=== PATIENT | male | born 1950 | race Caucasian/White ===

== ENCOUNTER 2021-12-24 14:31 | Outpatient (REF) | payer OTHER, SELFPAY ==
--- NOTE | ~2021-12-24 | CT_ITS ---
EXAMINATION: CT CHEST SCREENING CLINICAL INFORMATION: Current smoker. 60 pack year history. COMPARISON: Previous chest CT June 2018 TECHNIQUE: Multidetector volumetric CT imaging of the chest is performed without contrast using low dose technique. Additional 2D coronal and sagittal reformatted images and axial 3D maximum intensity projection (MIP) images are generated on the CT workstation. This CT examination was performed using dose optimization techniques as appropriate, variously including the following: *Automated exposure control *Adjustment of mA and/or kV according to patient size (this includes techniques or standardized protocols for targeted exams where dose is matched to indication/reason for exam; i.e. extremities or head) *Use of iterative reconstruction technique DLP: 66 mGy-cm FINDINGS: LUNGS: There is evidence of mild emphysema. There is chronic scarring and focal bronchiectasis in the left upper lobe that is stable. There are small calcified and noncalcified pulmonary nodules that are stable. Largest pulmonary nodule is a 3 mm left upper lobe nodule axial image 97 series 6. No new pulmonary nodule is seen. No endobronchial or endotracheal lesion is seen. MEDIASTINUM: There is mild coronary artery calcification. The mediastinum is otherwise normal. The mediastinum is normal. PLEURA: There is no pleural effusion. No pleural mass or thickening. AXILLA: No lymphadenopathy. UPPER ABDOMEN: Unremarkable OSSEOUS STRUCTURES: Unremarkable. CT/CT lung screening IMPRESSION: Mild emphysema. Stable small pulmonary nodules and scarring in the left upper lobe. Mild coronary artery calcification. ASSESSMENT: Lung-RADS category 2: Benign RECOMMENDATION: Annual low-dose chest CT follow-up recommended.
== END 2021-12-24 14:32 | disposition home or self-care (01) ==
LOC: HO.CT 14:31
PROVIDERS: Visit Provider Physician Assistant Medical
DX: Z12.2 Encounter for screening for malignant neoplasm of respiratory organs (principal); Z87.891 Personal history of nicotine dependence
CPT/HCPCS: 71271

== ENCOUNTER 2023-05-11 13:40 | Outpatient (REF) | payer OTHER, SELFPAY | END 2023-05-11 13:41 | disposition home or self-care (01) | LOC: HO.HHCL 13:40 | PROVIDERS: Visit Provider Family Medicine | DX: Z13.89 Encounter for screening for other disorder (principal) ==

== ENCOUNTER 2023-05-12 15:06 | Outpatient (REF) | payer OTHER, SELFPAY ==
[2023-05-12 16:14] LABS: MANUAL DIFF FLAG NO
[2023-05-12 16:15] LABS: Basophils Absolute Auto 0.1 X10*3/uL (0.0-0.2); Basophils Percent Auto 1.3 % (0-2); Eosinophils Absolute Auto 0.3 X10*3/uL (0.0-0.4); Eosinophils Percent Auto 3.2 % (0-4); Hematocrit 52.9 % (42.0-52.0); Hemoglobin 17.2 g/dl (14.0-18.0); Imm Gran Abs Auto 0.03 X10*3/uL (0.00-0.03); Imm Gran Pct Auto 0.3 % (0.0-0.4); Lymphocytes Absolute Auto 2.1 X10*3/uL (1.2-4.9); Lymphocytes Percent Auto 24.3 % (20-40); Mean Corpuscular HGB Conc 32.5 g/dl (31.0-36.0); Mean Corpuscular Hemoglobin 29.5 pg (27.0-33.0); Mean Corpuscular Volume 90.7 fL (80.0-98.0); Mean Platelet Volume 9.7 fL (9.4-12.4); Monocytes Absolute Auto 0.8 X10*3/uL (0.1-1.2); Monocytes Percent Auto 8.7 % (2-11); Neutrophils Absolute Auto 5.4 x10*3/uL (2.0-8.3); Neutrophils Percent Auto 62.2 % (45-73); Platelet Count 275 X10*3/uL (160-400); Red Blood Count 5.83 X10*6/uL (4.60-5.80); Red Cell Distribution Width 12.2 % (11.0-16.0); White Blood Count 8.6 X10*3/uL (4.8-10.8)
[2023-05-12 16:24] LABS: Estimated Average Glucose 143 mg/dL; Hemoglobin A1c % 6.6 %
[2023-05-12 17:56] LABS: Creatinine Urine 148.74 mg/dL; Microalbum/Creatinine Ratio Ur 6.7 ug/mg cr
[2023-05-12 18:01] LABS: Anion Gap 17 (12-20); Blood Urea Nitrogen 17 mg/dL (9-16); Calcium 10.3 mg/dL (8.4-10.2); Carbon Dioxide 28 mmol/L (22-29); Chloride 100 mmol/L (96-108); Cholesterol 107 mg/dL; Estimated Glomerular Filt Rate > 60; Glucose Random 136 mg/dL (60-115); HDL Cholesterol 43 mg/dL; LDL Cholesterol Calculated 43 mg/dl; Potassium 5.1 mmol/L (3.3-5.1); Sodium 140 mmol/L (135-145); Triglycerides 107 mg/dL
[2023-05-12 18:17] LABS: Free T4 (Free Thyroxine) 0.95 ng/dL (0.71-1.85); Thyroid Stimulating Hormone 1.13 uIU/mL (0.32-4.0); Vitamin D 25-OH Total 41.2 ng/mL (>30)
== END 2023-05-12 15:07 | disposition home or self-care (01) ==
LOC: HO.HHCL 15:06
PROVIDERS: Visit Provider Family Medicine
DX: E11.3299 Type 2 diabetes mellitus with mild nonproliferative diabetic retinopathy without macular edema, unspecified eye (principal); Z79.4 Long term (current) use of insulin; M19.90 Unspecified osteoarthritis, unspecified site
CPT/HCPCS: 36415; 80048; 80061; 82043; 82306; 83036; 84439; 84443; 85025

== ENCOUNTER 2024-03-14 10:42 | Outpatient (REF) | payer OTHER, SELFPAY ==
[2024-03-14 11:59] LABS: Hemoglobin 18.6 g/dl (14.0-18.0); Mean Corpuscular HGB Conc 33.1 g/dl (31.0-36.0); Mean Corpuscular Hemoglobin 31.2 pg (27.0-33.0); Mean Corpuscular Volume 94.3 fL (80.0-98.0); Mean Platelet Volume 9.2 fL (9.4-12.4); Platelet Count 247 X10*3/uL (160-400); Red Blood Count 5.96 X10*6/uL (4.60-5.80); Red Cell Distribution Width 13.1 % (11.0-16.0)
[2024-03-14 12:08] LABS: Hematocrit 56.2 % (42.0-52.0)
[2024-03-14 12:20] LABS: Estimated Average Glucose 151 mg/dL; Hemoglobin A1c % 6.9 % (<6.0)
[2024-03-14 13:17] LABS: Alanine Aminotransferase 9 U/L (0-40); Albumin Level 4.2 g/dL (3.5-5.0); Alkaline Phosphatase 87 U/L (39-117); Anion Gap 16 (12-20); Aspartate Amino Transferase 12 U/L (5-37); Bilirubin Direct 0.3 mg/dL (0.0-0.5); Bilirubin Total 0.7 mg/dL (0.0-1.0); Blood Urea Nitrogen 20 mg/dL (9-16); Calcium 9.6 mg/dL (8.4-10.2); Carbon Dioxide 33 mmol/L (22-29); Chloride 94 mmol/L (96-108); Cholesterol 101 mg/dL (<200); Estimated Glomerular Filt Rate > 60; Glucose Random 85 mg/dL (60-115); HDL Cholesterol 42 mg/dL (>40); LDL Cholesterol Calculated 46 mg/dL (<100); Potassium 4.2 mmol/L (3.3-5.1); Sodium 139 mmol/L (135-145); Total Protein 7.5 g/dL (6.5-8.0); Triglycerides 65 mg/dL (<150)
[2024-03-14 13:40] LABS: Free T4 (Free Thyroxine) 1.25 ng/dL (0.71-1.85); Thyroid Stimulating Hormone 1.16 uIU/mL (0.32-4.0); Vitamin D 25-OH Total 34.5 ng/mL (>30)
[2024-03-14 13:55] LABS: Creatinine Urine 111.92 mg/dL; Microalbum/Creatinine Ratio Ur 19.6 ug/mg cr (<30)
== END 2024-03-14 10:43 | disposition home or self-care (01) ==
LOC: HO.HHCL 10:42
PROVIDERS: Visit Provider Family Medicine
DX: E11.3299 Type 2 diabetes mellitus with mild nonproliferative diabetic retinopathy without macular edema, unspecified eye (principal); I10 Essential (primary) hypertension; E78.49 Other hyperlipidemia; Z79.4 Long term (current) use of insulin
CPT/HCPCS: 36415; 80048; 80061; 80076; 82043; 82306; 82570; 83036; 84439; 84443; 85027

== ENCOUNTER 2024-04-12 12:58 | Outpatient (REF) | payer OTHER, SELFPAY ==
[2024-04-12 16:13] LABS: Hemoglobin 17.2 g/dl (14.0-18.0); Mean Corpuscular HGB Conc 31.2 g/dl (31.0-36.0); Mean Corpuscular Hemoglobin 29.7 pg (27.0-33.0); Mean Corpuscular Volume 95.2 fL (80.0-98.0); Mean Platelet Volume 10.2 fL (9.4-12.4); NRBC Pct Auto 0.2 /100WBC (0.0-0.2); Platelet Count 275 X10*3/uL (160-400); Red Cell Distribution Width 13.5 % (11.0-16.0); White Blood Count 8.1 X10*3/uL (4.8-10.8)
[2024-04-12 16:19] LABS: Hematocrit 55.2 % (42.0-52.0)
[2024-04-12 16:34] LABS: Anion Gap 11 (12-20); Blood Urea Nitrogen 24 mg/dL (9-16); Calcium 9.4 mg/dL (8.4-10.2); Carbon Dioxide 37 mmol/L (22-29); Chloride 95 mmol/L (96-108); Estimated Glomerular Filt Rate > 60; Glucose Random 132 mg/dL (60-115); Potassium 5.2 mmol/L (3.3-5.1); Sodium 138 mmol/L (135-145)
[2024-04-12 16:55] LABS: Free T4 (Free Thyroxine) 0.94 ng/dL (0.71-1.85); Thyroid Stimulating Hormone 1.18 uIU/mL (0.32-4.0); Vitamin D 25-OH Total 27.8 ng/mL (>30)
[2024-04-12 17:05] LABS: Vitamin B12 262 pg/mL (200-900)
[2024-04-14 10:49] LABS: RPR Rapid Plasma Reagin NON-REACTIVE (NON-REACTIVE)
== END 2024-04-12 12:59 | disposition home or self-care (01) ==
LOC: HO.HHCL 12:58
PROVIDERS: Visit Provider Family Medicine
DX: R68.89 Other general symptoms and signs (principal)
CPT/HCPCS: 36415; 80048; 82306; 82607; 82746; 84439; 84443; 85027; 86592

== ENCOUNTER 2024-05-30 13:57 | Outpatient (REF) | payer OTHER, SELFPAY ==
--- NOTE | ~2024-05-30 | XR_ITS ---
EXAMINATION: XR CHEST CLINICAL INFORMATION: History of pneumonia, COPD. COMPARISON: No recent prior radiograph. CT lung screening 12/24/2021. TECHNIQUE: 2 views of the chest were obtained. FINDINGS: Lungs appear somewhat hyperaerated, with mildly flattened hemidiaphragms bilaterally. There is scarring in the left upper lung distribution. There is thickening of the minor fissure, and inferior major fissure on the right, suggesting localized atelectasis and/or loculated effusions. No inferior layering effusions. Left lung appears clear otherwise. Cardiac silhouette is normal in size. Aortic contour is normal. Hilar silhouettes are unremarkable. No suspicious osseous abnormalities. XR/XR chest 2V IMPRESSION: 1. COPD. 2. Linear thickening/opacity along the right minor fissure and inferior right major fissure, findings suggesting atelectasis versus loculated pleural fluid. 3. Acute pneumonia not entirely excluded in the appropriate clinical setting. 4. Aside from minor scarring, the left lung is clear. 5. Given findings, consider CT to more definitively characterize findings.
[2024-05-30 16:32] LABS: Anion Gap 16 (12-20); Blood Urea Nitrogen 24 mg/dL (9-16); Calcium 10.3 mg/dL (8.4-10.2); Carbon Dioxide 38 mmol/L (22-29); Chloride 91 mmol/L (96-108); Estimated Glomerular Filt Rate > 60; Glucose Random 116 mg/dL (60-115); Sodium 140 mmol/L (135-145)
== END 2024-05-30 13:58 | disposition home or self-care (01) ==
LOC: HO.HHCL 13:57
PROVIDERS: Visit Provider Internal Medicine Geriatric Medicine
DX: I95.2 Hypotension due to drugs (principal); Z87.01 Personal history of pneumonia (recurrent)
CPT/HCPCS: 36415; 71046; 80048

== ENCOUNTER 2024-08-10 13:45 | Outpatient (AMB) | payer OTHER, SELFPAY ==
[2024-08-10 13:51] VITALS: BP 120/62; PULSE 83; O2SAT 90
--- NOTE | 2024-08-10 13:51 | A.OFFVIS_ITS ---
Vital Signs 08/10/24 13:51 Weight 162 lb 0.636 oz BP 120/62 Blood Pressure Location Lt brachial Position Sitting Pulse 83 Pulse Source Pulse Oximeter Pulse Oximetry (%) 90 L Oxygen Delivery Method Nasal Cannula Oxygen Flow Rate 2 Intake Visit Reasons: copd Intake Note: recently discharged from [facility] No Known Allergies Allergy (Verified 08/10/24 13:59) HPI HPI copd: Details: 74-year-old gentleman active greater than 40 pack-year smoker, with underlying COPD of unclear severity recently discharged from [facility] on 2 L of supplemental oxygen referred for pulmonary evaluation. Patient has been using trilogy and albuterol MDI with suboptimal control of his dyspnea symptoms. He is also complain of orthopnea and lower extremity edema. He is currently on no diuretic therapy. Patient does not have recent pulmonary function testing. His recent low-dose lung cancer screening CT chest showed no worrisome pulmonary nodules. [facility] Social History (Updated 08/10/24 @ 14:02 by Martha Pinedo LPN) Patient Tobacco Use Status: Current everyday Tobacco user Tobacco use type: Cigarette Cigarettes Per Day: 5 Years Smoked: 61 e-Cigarette/Vaping Use: Never Used Review of Systems Const Denies daytime sleepiness, Denies excessive sweating, Denies fatigue, Denies fever(s), Denies lethargy, Denies malaise, Denies night sweats, Denies snoring and Denies weight loss Eyes Denies blurry vision and Denies itchy eyes ENT Denies nasal congestion, Denies post nasal drip, Denies sinus pain, Denies sinus pressure and Denies other ( Thrush) Card Denies chest pain, Denies pedal edema, Denies dyspnea, Reports dyspnea on exertion, Denies orthopnea and Denies paroxysmal nocturnal dyspnea Resp Denies cough, Denies hemoptysis, Denies excessive phlegm production, Denies dyspnea, Reports dyspnea on exertion, Denies snoring and Denies wheezing GI Denies abdominal pain and Denies heartburn Musc Denies myalgias, Denies arthralgias and Denies joint swelling Skin/Breast Denies rash Endo Denies excessive sweating, Denies fatigue and Denies heat intolerance Joey/Lymph Denies easy bruising Aller/Immun Denies itchy eyes, Denies seasonal rhinorrhea and Denies wheezing Physical Exam Vital Signs: Last Vital Signs Pulse 83 08/10/24 13:51 BP 120/62 08/10/24 13:51 Pulse Ox 90 L 08/10/24 13:51 Oxygen Delivery Method Nasal Cannula 08/10/24 13:51 Oxygen Flow Rate 2 08/10/24 13:51 Const General: no acute distress and alert Nutritional Appearance: not obese Orientation/consciousness: Other orientation findings ( oriented) HEENT Head: Yes atraumatic Eyes General: appearance normal, both eyes and all related structures Sclerae: sclerae normal EOM: EOMs intact bilaterally Neck Neck: Yes supple Lymphatic: no lymphadenopathy noted Resp Effort & Inspection: normal respiratory effort and no use of accessory muscles Auscultation: clear to auscultation bilaterally Cardio Rate: regular rate Rhythm: regular rhythm Heart sounds: no gallops, no murmurs and no rubs Skin General skin exam: other ( warm) Extrem General: No clubbing, No cyanosis and Yes edema (2+ bilateral) Assessment & Plan Assessment & Plan (1) Personal history of nicotine dependence: Code(s): Z87.891 - Personal history of nicotine dependence Category: Medical Plan: Results of recent lung cancer screening CT chest reviewed and show no worrisome pulmonary nodules. Continue with yearly screening. (2) Supplemental oxygen dependent: Code(s): Z99.81 - Dependence on supplemental oxygen Category: Medical Plan: Continue supplemental oxygen to maintain O2 saturation of 88-92%. (3) Dyspnea on exertion: Code(s): R06.09 - Other forms of dyspnea Category: Medical Plan: Likely multifactorial with contribution from underlying pulmonary and cardiac etiologies. Will obtain results of 2D echocardiogram from [facility]. Now also with significant orthopnea, will start on Lasix at 40 mg daily. (4) COPD (chronic obstructive pulmonary disease): Code(s): J44.9 - Chronic obstructive pulmonary disease, unspecified Category: Medical Plan: Unclear severity. Will obtain full PFT. Suboptimally controlled on Trelegy and albuterol MDI. Will add theophylline. Orders: Orders PFT pulmonary function test Today J44.9 - Chronic obstructive pulmonary disease, unspecified Medications: New theophylline ER 400 mg PO DAILY 30 tabs 6RF Coding Level of Care Code Est Pt Level 4 (85128) Diagnoses Personal history of nicotine dependence Z87.891 Supplemental oxygen dependent Z99.81 Dyspnea on exertion R06.09 COPD (chronic obstructive pulmonary disease) J44.9
== END 2024-08-10 14:56 | disposition home or self-care (01) ==
LOC: HO.HPS 13:45
PROVIDERS: PCP Family Medicine; Visit Provider Internal Medicine Pulmonary Disease
DX: J44.9 Chronic obstructive pulmonary disease, unspecified (principal)
CPT/HCPCS: 94060; 94727; 94729; 99214

== ENCOUNTER → 2024-08-10 13:45 | Outpatient (BNVA) | payer OTHER, SELFPAY | PROVIDERS: PCP Family Medicine; Visit Provider Internal Medicine Pulmonary Disease ==

== ENCOUNTER 2024-08-10 14:52 | Outpatient (REF) | payer OTHER, SELFPAY ==
[2024-08-10 15:00] VITALS: PULSE 78; RESP 16; O2SAT 92
--- NOTE | 2024-08-10 15:30 | PFT_ITS ---
Indication: COPD Spirometry [FEV1 to FVC 23%; FEV1 0.68 L; FVC 2.88 L. There is a significant response to bronchodilators noted.] Lung Volumes [Total lung capacity 67% predicted] Diffusion Capacity [Diffusing capacity 41% predicted] Comparisons [none] Interpretation [There is an obstructive ventilatory defect consistent with very severe COPD. There is a significant response to bronchodilators noted. The patient also has restrictive ventilatory defect consistent with mild restrictive lung disease. Could be secondary to parenchymal disease. The patient also has a severe diffusion impairment. Clinical correlation warranted] MTDD
== END 2024-08-10 14:53 | disposition home or self-care (01) ==
LOC: HO.RESP 14:52
PROVIDERS: PCP Family Medicine; Visit Provider Internal Medicine Pulmonary Disease
DX: J44.9 Chronic obstructive pulmonary disease, unspecified (principal)
CPT/HCPCS: 94010; 94640; 94727; 94729; 99212

== ENCOUNTER 2024-12-19 14:06 | Outpatient (REF) | payer OTHER, SELFPAY ==
--- NOTE | ~2024-12-19 | XR_ITS ---
EXAMINATION: XR CHEST CLINICAL INFORMATION: COPD exacerbation, right lung cancer COMPARISON: May 30, 2024. TECHNIQUE: 2 views of the chest were obtained. FINDINGS: Patchy and confluent opacity extending from the right perihilar region to the periphery of the right upper and to a lesser extent lower lungs. Linear opacity along the minor fissure. No pneumothorax. Blunting of the right costophrenic angle. Cardiomediastinal silhouette size appears prominent, right pulmonary region. Calcified plaque thoracic aorta. Multilevel thoracic spondylosis. Osteopenia versus osteoporosis. XR/XR chest 2V IMPRESSION: Concerning worsening neoplasm/malignancy, right lung. Electronically signed by: Austen Houser MD 12/19/2024 02:32 PM EDT
--- OUTSIDE RECORDS SUMMARY | 2024-12-19 17:17 | XMS_ITS | Clinical Summary ---
Author Organization [employer] Address [address] [facility] [address] [place] [address] Care Team Providers Care Divisional Merchandising Manager Name Role Phone AmairaniSadia strong Primary Care Provider [phone] Dede Calles PharmD Unavailable [phone] Allergies No known active allergies Medications glucose 4 g chewable tablet CHEW 4 TABLETS as NEEDED FOR LOW BLOOD SUGAR LESS THAN 70 MG/DL 07/06/20 22 Active ketoconazole (NIZOral) 2 % shampoo APPLY TO THE AFFECTED AREA(S) TWICE A WEEK FOR 4 WEEKS. WAIT AT LEAST 3 DAYS BETWEEN EACH USE 07/29/20 22 Active TRUEplus Lancets 33G miscIndications :Type 2 diabetes mellitus without complication, with long-term current use of insulin ([facility]) TEST BLOOD SUGAR THREE TIMES DAILY 100 each 5 08/24/20 23 Active Diclofenac Sodium 1 % gel APPLY 2 GRAMS TOPICALLY FOUR TIMES DAILY NEEDED 100 g 3 08/30/20 23 Active UltiGuard SafePack Pen Needle 32G X 4 MM miscIndications :Type 2 diabetes mellitus without complication, with long-term current use of insulin ([facility]) USE WITH INSULIN ONCE DAILY 100 each 3 02/15/20 24 Active Alcohol Swabs (Alcohol Prep) 70 % padsIndications :Type 2 diabetes mellitus without complication, with long-term current use of insulin ([facility]) USE WITH INSULIN USE AND TO TEST BLOOD SUGAR UP TO THREE TIMES DAILY PRN 100 each 11 02/15/20 24 Active mometasone (Elocon) 0.1 % ointment Apply topically Once per day. 15 g 02/15/20 24 2024 Active baclofen (Lioresal) 10 MG tabletIndicatio ns:Chronic pain syndrome TAKE 1 TABLET BY MOUTH THREE TIMES DAILY NEEDED FOR MUSCLE SPASMS OR PAIN 90 tablet 1 06/13/20 24 Active naloxone (Narcan) 4 mg/0.1 mL nasal spray FOR SUSPECTED OPIOID OVERDOSE. SPRAY 0.1mL IN ONE NOSTRIL. REPEAT IN ALTERNATE NOSTRIL 2-3 MINUTES IF NEEDED. SEEK MEDICAL ATTENTION IMMEDIATELY EVEN IF PATIENT RESPONDS. 2 each 2 06/13/20 24 Active atorvastatin (Lipitor) 40 MG tablet TAKE 1 TABLET BY MOUTH EVERY DAY AT BEDTIME 90 tablet 3 06/22/20 24 Active acetaminophen (Tylenol 8 Hour) 650 MG ER tablet TAKE 1 TABLET BY MOUTH EVERY 6 HOURS NEEDED FOR PAIN OR FEVER 60 tablet 2 07/07/20 24 Active furosemide (Lasix) 20 MG tabletIndicatio ns:Localized swelling of both lower legs Take 1 tablet (20 mg) by mouth Once per day. 30 tablet 3 08/14/20 24 Active cetirizine (ZyrTEC) 10 MG tablet TAKE 1 TABLET BY MOUTH EVERY DAY 30 tablet 2 08/17/20 24 Active gabapentin (Neurontin) 300 MG capsule TAKE 1 CAPSULE BY MOUTH THREE TIMES A DAY 90 capsule 3 08/17/20 24 Active Fluticasone-Ume clidin-Vilant (Trelegy Ellipta) 200-62.5-25 MCG/ACT aerosol powderIndicatio ns:Chronic obstructive pulmonary disease, unspecified COPD type (CMS/HCC) INHALE 1 PUFF ONCE DAILY AT THE SAME TIME EVERY DAY. 60 each 3 10/27/19 25 Active Insulin Lispro 100 UNIT/ML solution Inject 1 each under the skin 3 times daily. Sliding scale: BG 150-200 mg/dL = 2 units, 200-249 mg/dL = 4 units, 250-299 mg/dL = 6 units, 300-340 mg/dL = 8 units, >350 mg/dL = contact provider 08/29/20 24 Active nicotine (Nicoderm CQ) 14 MG/24HR patch Place 1 patch on the skin 1 (one) time each day at the same time. 30 patch 2 11/07/19 25 2024 Active albuterol 108 (90 Base) MCG/ACT inhaler INHALE 2 PUFFS EVERY 4 TO 6 HOURS NEEDED 6.7 g 3 11/24/19 25 Active metFORMIN (Glucophage) 1000 MG tablet Take 1 tablet (1,000 mg) by mouth with breakfast and with evening meal. 60 tablet 11/24/19 25 2025 Active empagliflozin (Jardiance) 10 MG Take 1 tablet (10 mg) by mouth Once per day. 30 tablet 11/24/19 25 2025 Active Trulicity 1.5 MG/0.5ML solution auto-injector Inject 1.5 mg under the skin every 7 (seven) days. 11/19/19 Active Lantus 100 UNIT/ML injection Inject 20 Units under the skin Once per day. 11/15/19 Active oxyCODONE (Roxicodone) 10 MG immediate release tablet 11/16/19 Active Rayshawn-24 100 MG 24 hr capsule Take 4 capsules by mouth Once per day. 11/15/19 Active Eliquis 5 MG tabletIndicatio ns:Chronic atrial fibrillation (CMS/HCC) TAKE 1 TABLET (5 MG TOTAL) BY MOUTH 2 (TWO) TIMES A DAY. 60 tablet 12/06/19 Active cholecalciferol (Vitamin D-3) 50 MCG (2000 UT) tablet TAKE 1 TABLET (2,000 UNITS TOTAL) BY MOUTH DAILY. 30 tablet 12/06/19 Active predniSONE (Deltasone) 20 MG tablet Take 2 tablets (40 mg) by mouth Once per day for 5 days. 10 tablet 12/20/19 25 2024 Active doxycycline (Vibra-Tabs) 100 MG tablet Take 1 tablet (100 mg) by mouth 2 times daily for 10 days. Take with a full glass of water and do not lie down for at least 30 minutes after. 20 tablet 12/20/19 25 2024 Active dilTIAZem CD (Cardizem CD) 120 MG 24 hr capsule Take 2 capsules (240 mg) by mouth Once per day. 12/20/19 25 Active Continuous Glucose Design Sales Consultant (FreeStyle Fuad 3 [place]) deviceIndicatio ns:Type 2 diabetes mellitus without complication, with long-term current use of insulin (CMS/HCC) 1 each Once per day. Use as directed for CGM 1 each 12/20/19 Active Continuous Glucose Sensor (FreeStyle Fuad 3 Plus Sensor) miscIndications :Type 2 diabetes mellitus without complication, with long-term current use of insulin ([facility]) 1 each every 15 days. Apply 1 every 15 days as directed for CGM 2 each 12/20/19 Active glucose blood (FreeStyle Precision Jesus Test) test strip Use to test blood sugar 3 times daily in case of CGM failure or extremes of BG 100 each 12/20/192025 Active Continuous Blood Gluc Design Sales Consultant (FreeStyle Ufad 2 [place]) device Use as directed 09/25/202024 Discontinued(T herapy completed) D3 Super Strength 50 MCG (1999 UT) capsuleIndicati ons:Vitamin D deficiency TAKE 1 CAPSULE BY MOUTH EVERY DAY 90 capsule 3 10/08/202024 Discontinued(T herapy completed) dilTIAZem CD (Cardizem CD) 120 MG 24 hr capsule 07/21/202024 Discontinued(R eorder (will not trigger notification to Pharmacy)) cholecalciferol (Vitamin D-3) 50 MCG (1999 UT) tablet 07/21/202024 Discontinued(M ed list cleanup (will not trigger notification to Pharmacy)) empagliflozin-m etFORMIN (Synjardy) 12.5-1000 MGIndications:T ype 2 diabetes mellitus without complication, with long-term current use of insulin ([facility]) TAKE 1 TABLET TWICE DAILY IN THE MORNING AND IN THE EVENING WITH MEALS 60 tablet 09/12/202024 Discontinued(R eorder (will not trigger notification to Pharmacy)) Eliquis 5 MG tablet TAKE 1 TABLET (5 MG TOTAL) BY MOUTH 2 (TWO) TIMES A DAY. 60 tablet 10/27/19 25 2024 Discontinued albuterol 108 (90 Base) MCG/ACT inhaler INHALE 2 PUFFS EVERY 4 TO 6 HOURS NEEDED 6.7 g 10/27/192024 Discontinued theophylline ER (Uniphyl) 400 MG 24 hr tablet Take 1 tablet (400 mg) by mouth Once per day. Do not crush or chew. 30 tablet 11/07/192024 Discontinued(R eorder (will not trigger notification to Pharmacy)) Continuous Glucose Sensor (FreeStyle Fuad 2 Sensor) miscIndications :Type 2 diabetes mellitus without complication, with long-term current use of insulin (CMS/[facility]) Apply 1 sensor as directed every 14 days for CGM 2 each 11/06/192024 Discontinued(T herapy completed) insulin glargine (Lantus SoloStar) 100 UNIT/ML penIndications: Type 2 diabetes mellitus without complication, with long-term current use of insulin ([facility]) Inject 40 units subQ once daily. 15 mL 5 11/06/192024 Discontinued(M ed list cleanup (will not trigger notification to Pharmacy)) Dulaglutide (Trulicity) 3 MG/0.5ML solution auto-injector Inject 3 mg under the skin 1 (one) time per week. 2 mL 11/06/192024 Discontinued(M ed list cleanup (will not trigger notification to Pharmacy)) dilTIAZem CD (Cardizem CD) 120 MG 24 hr capsule Take 1 capsule (120 mg) by mouth Once per day. 90 capsule 11/24/192024 Discontinued theophylline ER (Uniphyl) 400 MG 24 hr tablet Take 1 tablet (400 mg) by mouth Once per day. Do not crush or chew. 90 tablet 11/24/192024 Discontinued(M ed list cleanup (will not trigger notification to Pharmacy)) empagliflozin-m etFORMIN (Synjardy) 12.5-1000 MGIndications:T ype 2 diabetes mellitus without complication, with long-term current use of insulin ([facility]) TAKE 1 TABLET TWICE DAILY IN THE MORNING AND IN THE EVENING WITH MEALS 60 tablet 11/24/192024 Discontinued(C ost of medication) Active Problems Problem Noted Date Diagnosed Date Chronic atrial fibrillation 12/06/2024 Non-small cell carcinoma of lung, right 11/07/19 Assessment & Plan (11/07/2024 6:50 PM EST): Undergoing workup and staging with Dr Buckner at [facility] Attend next followup at 11/10/24 Hyperkalemia 11/07/2024 Assessment & Plan (11/07/2024 8:02 PM EST): Recheck BMP via VNA blood draw 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, with long-term current use of insulin, macular edema presence unspecified, unspecified laterality 11/06/2024 Memory loss 08/14/2024 Localized swelling of both lower legs 08/14/2024 Assessment & Plan (08/14/2024 7:02 AM EST): Hydrochlorothiazide stopped in hospitalization Start low dose diuretic Lasix 20mg in the morning Wear compression stockings 8-10 hours per day, elevate legs Discussed infectious symptoms, continue to monitor for warmth and drainage with VNA, apply lotion to dry skin Status post carpal tunnel release 07/25/2015 Chronic low back pain 07/25/2015 Chronic obstructive lung disease 07/25/2015 Assessment & Plan (11/07/2024 6:51 PM EST): Severe, FEV1 18% of predicted Needs supplemental oxygen 24 hours a day, declined BiPap in the hospital Will order Jaky portable O2 tanks Continue [facility]NA services through [facility] Assessment & Plan (08/14/2024 7:03 AM EST): Severe, he is 84% on RA Has questions about getting portable oxygen Start Theophylline per pulm, continue Trelegy Just had PFTs done yesterday Declines smoking cessation aids Requests [employer] SUPERVIS[employer] services, this is reasonable given his functional limitations, described to sister how to request HOTEL OR [employer]EL ROOM SERVICE SUPERVISOR evaluation at medical records Lung exam notable for diffuse wheezing and crackles at bases Essential hypertension 07/25/2015 Assessment & Plan (11/07/2024 8:00 PM EST): He is unsure about meds taking, or about recent blood pressure values Will recheck BMP and discontinue Lisinopril if K is still elevated Chronic gastroesophageal reflux disease 07/25/20 Hyperlipidemia 07/25/2015 Chronic knee pain 07/25/2015 BMI 26.0-26.9,adult 07/25/2015 Osteoarthritis 07/25/2015 Tobacco dependence 07/25/2015 Assessment & Plan (11/07/2024 8:02 PM EST): Cutting back on smoking by using patches, refills ordered Own to 4 cigarettes a day Type 2 diabetes mellitus 07/25/2015 Assessment & Plan (11/07/2024 8:01 PM EST): Continue Lantus 40 units at night Hold sliding scale insulin Assessment & Plan (08/14/2024 6:57 AM EST): Glu 203 today A1C 8.9 Continue Elizabeth Yan Synjardy Called [facility] and they are able to bubble meds, requested this going forward for patient and with delivery Resolved Problems Problem Noted Date Diagnosed Date Resolved Date Hernia of anterior abdominal wall 07/25/2015 05/11/2023 Encounters Date Type Department Care Team Description 12/19/2024 1:15 PM EDT Office Visit [facility] [place] [address] Name, MD Keaton Chronic obstructive pulmonary disease, unspecified COPD type (CMS/HCC) (Primary Dx); Chronic atrial fibrillation (CMS/HCC); Non-small cell carcinoma of lung, right (CMS/HCC); Type 2 diabetes mellitus without complication, with long-term current use of insulin (CMS/HCC) 12/19/2024 Travel 12/18/2024 Telephone [facility] [place] [address] Sadia Leon DO FYI 12/14/2024 Telephone [facility] [address] [place] [address] Dejah No, PURA Appointment Request; Hospital Follow-up 12/12/2024 Refill [facility] [place] [address] Sadia Leon DO Chronic atrial fibrillation (CMS/HCC) 12/05/2024 Refill [facility] [place] [address] Sadia Leon DO Chronic atrial fibrillation (CMS/HCC) (Primary Dx) 12/01/2024 Telephone [facility] [address] [place] [address] Sadia Leon DO Hospital Follow-up 11/28/2024 Telephone [facility] [address] [place] [phone] Eulalia Todd, Ty Care Coordination 11/28/2024 Telephone [facility] [place] [address] Sadia Leon DO Med Refill 11/24/2024 Orders Only [facility] [place] [address] Shell Spann MD Type 2 diabetes mellitus without complication, with long-term current use of insulin (CMS/HCC) 11/24/2024 Telephone [facility] [address] [facility] [place], [place] [address] Sadia Leon DO 11/24/2024 Refill [facility] [address] [place], [place] [address] Sadia Leon, 11/23/2024 Telephone [facility] [address] [facility] [place], [place] [address] Sadia Leon DO FYI 11/21/2024 Telephone [facility] [address] [facility] [place], [place] [address] Sadia Leon DO FYI 11/20/2024 Patient Outreach [facility] [address] [facility] [place], [place] [address] Sadia Leon DO Transition Of Care (Tcm) (F(Direct) - Scheduled ) 11/10/2024 Telephone [facility] [address] [facility] [place] [address] Vicki Mcdonald RN No CLINICAL QUALITY ANALYST required 11/06/2024 2:45 PM EST Telemedicine [facility] [address] [facility] 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, with long-term current use of insulin, macular edema presence unspecified, unspecified laterality (CMS/HCC); Chronic obstructive pulmonary disease, unspecified COPD type (CMS/HCC); Type 2 diabetes mellitus without complication, with long-term current use of insulin (CMS/[facility]); Tobacco abuse counseling; Hyperkalemia; Essential hypertension; Tobacco dependence 11/06/2024 Telephone [facility] [address] [place], [place] [address] Sadia Leon DO Durable Medical Equipment 11/06/2024 Telephone [facility] [address] [place], [place] [address] Sadia Leon DO FYI 11/06/2024 Telephone [facility] [address] [facility] [place] [address] Francie Rogel RN BW draw 11/06/2024 Travel 11/06/2024 Telephone [facility] [address] [place], [place] [address] Sadia Leon DO Call Back Request 11/03/2024 Telephone [facility] [address] [place], [place] [address] Haroldo Nova, PharmD Appointment change 10/31/2024 Telephone [facility] [address] [facility] [place] [address] Sadia Leon, Medication Question; NNTS- Lab (Hyperkalemia of 6.5) 10/31/2024 Refill [facility] [address], [place] [address] Sadia Leon, Chronic pain syndrome 10/31/2024 Telephone [facility] [address] [place], [place] [address] Haroldo Nova, PharmD 10/25/2024 Telephone [facility] [address] [facility] [place] [address] Sadia Leon DO Med Refill 10/25/2024 Refill [facility] [address] [facility] [place] [address] Sadia Leon DO Chronic obstructive pulmonary disease, unspecified COPD type (CMS/HCC) 10/18/2024 Telephone [facility] [address] [place], [place] [address] Sadia Leon DO Medication Question 10/17/2024 Patient Outreach [facility] [address] [facility] [address] Sadia Leon DO Transition Of Care (Tcm) (HDF - Scheduled (direct)) 10/17/2024 Telephone [facility] [address] [place] [address] Sadia Leon DO Hospital Follow-up 10/13/2024 Telephone [facility] [address] [place] [phone] Vicki Mcdonald, PURA Recommend CLINICAL QUALITY ANALYST Tele Tier 2 10/09/2024 Refill [facility] [address] [place] [address] Sadia Leon, Type 2 diabetes mellitus without complication, with long-term current use of insulin ([facility]) 09/28/2024 Telephone [facility] [address] [place] [phone] Sadia Leon DO Care Coordination from Last 3 Months Immunizations Name Administration Dates Next Due Hep B, adult 07/25/2015,02/11/2015,01/10/2015 Pfizer Covid-19 Vaccine 12+ 03/14/2024, Pfizer Covid-19 Vaccine 12+ Bivalent 05/11/2023 Pneumococcal Conjugate PCV 13 04/19/2016 Pneumococcal Polysaccharide PPSV23 09/11/2021, RSV Bivalent 02/15/2024 Tdap 06/20/2014 Zoster, Recombinant 06/03/2022,03/11/2022 Zoster, live 05/24/2018 Social History Tobacco Use Types Packs/Day Years Used Date Smoking Tobacco: Every Day Cigarettes Passive Smoke Exposure: Never Smokeless Tobacco: Never Tobacco Cessation:Ready to Q uit: Not Asked; Counseling Given: Not Answered Alcohol Use Standard Drinks/Week Comments Never 0 (1 standard drink = 0.6 oz pur e alcohol) Depression Answer Date Recorded Patient Health Questionnaire-9 Score 2 03/14/2024 Patient Health Questionnaire-9 Score 2 03/14/2024 Last PHQ-9: Questionnaire Data Not on file 0 03/14/2024 Housing Stability Answer Date Recorded What is your housing situation today? I have yolis landa 03/14/[address] you li ve. Do you have problems with any of the following? None of the above 03/14/2024 Food Insecurity Answer Date Recorded Within the past 12 months, y ou worried that your food would run out before you got money to buy more: Never True 03/14/2024 Within the past 12 months,th e food you bought just didn't last and you didn't have enough money to get more: Never True 01/2024 Transportation Answer Date Recorded In the past 12 months, has l ack of transportation kept you from medical appts, meetings, work or from getting things needed for daily living? No 03/14/2024 Utilities Answer Date Recorded In the past 12 months, has t he electric, gas, oil or water company threatened to shut off services in your home? No 03/14/2024 Depression Answer Date Recorded Patient Health Questionnaire-2 Score 0 03/14/2024 Sex and Gender Information Value Date Recorded Sex Assigned at Male 08/10/2022 10:19 AM EDT Legal Sex Male 10:19 AM EDT Gender Identity Male 08/10/2022 10:19 AM EDT Sexual Orientation Choose not to disclose 2021 10:19 AM EDT Last Filed Vital Signs Vital Sign Reading Time Taken Comments Blood Pressure 119/65 12/19/2024 1:20 PM EDT Pulse 94 12/19/2024 1:20 PM EDT Temperature 36.7 ??C (98.1 ??F) 12/19/2024 1:20 PM ED T Respiratory Rate 12 12/19/2024 1:20 PM EDT Oxygen Saturation 90% 12/19/2024 3:12 PM EDT Inhaled Oxygen Concentration - - Weight 71.6 kg (157 lb 12.8 oz) 12/19/2024 1:20 PM EDT Height 172.7 cm (5' 8 ) 12/19/2024 1:20 PM EDT Body Mass Index 23.99 12/19/2024 1:20 PM EDT Plan of Treatment Upcoming Encounters Date Type Department Care Team (Late st Contact Info) Description 12/29/2024 11:30 AM EDT Office Visit [facility] [address] [place] [address] Name, MD Keaton [address] [place] [address] Health Maintenance Due Date Last Done Comments CT Colonography 1950 Colonoscopy 1950 Colorectal Cancer Screening 1950 FIT DNA/Cologuard 1950 FIT 1950 FOBT 1950 Sigmoidoscopy 1950 Diabetes: Foot Exam 1960 Eye Exam 1960 Alcohol/Substance Use Screening 1962 Hepatitis C Screening 1968 Influenza Vaccine (#1) 2024 DTaP/Tdap/Td Vaccines (2 - Td or Tdap) 06/20/2024 06/20/2014 Diabetes: Hemoglobin A1C 11/11/2024 024, 03/14/2024, 02/15/2024, Additional history exists Depression Screening 03/14/2025 03/14/2024, 03/14/20 Diabetes: Urine Protein Screening 03/14/2025 03/14/2024, 05/12/2023, 03/31/2023, Additional history exists Lipid Panel 03/14/2025 03/14/2024, 11/2022, 09/11/2021, Additional history exists SDOH Screening 03/14/2025 03/14/2024 Tobacco Screening 12/19/2025 12/19/2024 Hepatitis B Vaccines Completed 07/25/2015, 02/11/2015, 01/10/2015 Pneumococcal Vaccine: 50+ Years Completed 09/11/2021, 04/19/2016, 06/20/2014 Zoster Vaccines Completed 06/03/2022, 0610/2021, 05/24/2018 RSV Patients and Patients Aged 60 years or older Completed 02/15/2024 COVID-19 Vaccine Completed 08/30/2024, 01/2024, 08/24/2023, Additional history exists HIB Vaccines Aged Out No longer eligi ble based on patient's age to complete this topic HPV Vaccines Aged Out No longer eligi ble based on patient's age to complete this topic Hepatitis A Vaccines Aged Out No long er eligible based on patient's age to complete this topic IPV Vaccines Aged Out No longer eligi ble based on patient's age to complete this topic Meningococcal Vaccine Aged Out No chandra shameka eligible based on patient's age to complete this topic RSV under 20 months Aged Out No longe r eligible based on patient's age to complete this topic Rotavirus Vaccines Aged Out No longer eligible based on patient's age to complete this topic Goals Goal Patient Goal Type Associated Problems Recent Progress Patient-Stated? Author Hemoglobin A1c < 7.5 Result Component 8.9( 1:28 PM EDT) No Alan Maki PharmD Record your blood sugar as directed Result Component No Dede Calles PharmD Note: Use CGM, ensuring sensor is scanned at least once every 8 hours to capture 24H data. Check BG manually, as directed. 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, with long-term current use of insulin, macular edema presence unspecified, unspecified laterality (CMS/HCC) ALBUMIN, RANDOM URINE W/CREATININE Routine 03/14/2024 10:43 AM EDT Type 2 diabetes mellitus with mild nonproliferative retinopathy, with long-term current use of insulin, macular edema presence unspecified, unspecified laterality (CMS/HCC) Essential hypertension Other hyperlipidemia LIPID PANEL, STANDARD Routine 03/14/2024 10:43 AM EDT Type 2 diabetes mellitus with mild nonproliferative retinopathy, with long-term current use of insulin, macular edema presence unspecified, unspecified laterality (CMS/HCC) Essential hypertension Other hyperlipidemia from Last 3 Months or Most Recently Relevant to Health Maintenance Results * XR Chest 2 Views (12/19/2024 2:06 PM EDT) Anatomical Region Laterality Modality Chest Radiographic Amaya ging 12/19/2024 2:06 PM EDT Narrative 12/19/2024 2:35 PM EDT ?[place] [facility] ?[address] ?[place] [address] ?XRay Report ? Signed ? Patient: Ilnicki,Fabian ?MR#: [id number] ?? 53 ? : 1950 ?Acct:[id number] ? Age/Sex: 74 / M ?ADM Date: 12/19/24 ? Loc: HO.HHCX ? Attending Dr: Keaton Higgins MD ? Ordering Physician: Keaton Higgins MD ?? Date of Service: 12/19/24 ?? Procedure(s): XR chest 2V ?? Accession Number(s): [id number] ? cc: Keaton Higgins MD ? EXAMINATION: ?? XR CHEST ? CLINICAL INFORMATION: ?? COPD exacerbation, right lung cancer ? COMPARISON: ?? May 30, 2024. ? TECHNIQUE: ?? 2 views of the chest were obtained. ? FINDINGS: ?? Patchy and confluent opacity extending from the right perihilar region ?? to the periphery of the right upper and to a lesser extent lower lungs. ?? Linear opacity along the minor fissure. ?? No pneumothorax. ?? Blunting of the right costophrenic angle. ?? Cardiomediastinal silhouette size appears prominent, right pulmonary ?? region. Calcified plaque thoracic aorta. Multilevel thoracic ?? spondylosis. Osteopenia versus osteoporosis. ? XR/XR chest 2V ?? IMPRESSION: ?? Concerning worsening neoplasm/malignancy, right lung. ? Electronically signed by: ??Austen Houser MD ??12/19/2024 02:32 PM ?? EDT ? Dictated By: ?Austen Becker MD ? Signed By: ?<Electronically signed by Austen No MD in OV> ? 12/19/24 1432 ? DD/ 1406 ? TD/TT: 12/19/24 1420 ? Bankman: ? Procedure Note Tony, Image - 12/19/2024 [facility] [address] [place] [address] XRay Report Signed Patient: Yosef Alvarez AMR#: [id number] 53 : 1950Acct:[id number] Age/Sex: 74 / MADM Date: 12/19/24 [facility] Att[facility] Dr: Keaton Higgins MD Ordering Physician: Keaton Higgins MD Date of Service: 12/19/24 Procedure(s): XR chest 2V Accession Number(s): [id number] cc: Keaton Higgins MD EXAMINATION: XR CHEST CLINICAL INFORMATION: COPD exacerbation, right lung cancer COMPARISON: May 30, 2024. TECHNIQUE: 2 views of the chest were obtained. FINDINGS: Patchy and confluent opacity extending from the right perihilar region to the periphery of the right upper and to a lesser extent lower lungs. Linear opacity along the minor fissure. No pneumothorax. Blunting of the right costophrenic angle. Cardiomediastinal silhouette size appears prominent, right pulmonary region. Calcified plaque thoracic aorta. Multilevel thoracic spondylosis. Osteopenia versus osteoporosis. XR/XR chest 2V IMPRESSION: Concerning worsening neoplasm/malignancy, right lung. Electronically signed by: Austen Houser MD 12/19/2024 02:32 PM EDT RP Dictated By: Austen Becker MD Signed By: <Electronically signed by Austen No MDin OV> 12/19/24 1432 DD/ 1406 TD/TT: 12/19/24 1420 Bankman: Keaton Higgins MD IMG XR PROCEDURES Final Result * (ABNORMAL) POCT HGB A1C (08/11/2024 1:28 PM EDT) Pathologist [facility] Hemoglobin A1C 8.9(A) 4.0 - 6.0 % QC Media Lot # [id number] Lot# Expiration Date [id number] Blood 08/11/2024 1:28 PM EDT Shell Spann MD POINT OF CARE TEST ENTER/EDIT ORDERABLES Final Result * Albumin, Random Urine W/Creatinine (03/14/2024 10:43 AM EDT) Creatinine, Urine 111.92 mg/dL [facility] Microalbumin Urine 22.0 mg/L [facility] Microalbum Creatinine Ratio Ur 19.6 <30 ug/mg cr [facility] Comment:Albumin/Creatinine R atio Reference Ranges: Normal: < 30 ug/mg creatinine Microalbuminuria: 30 - 300 ug/mg creatinineClinical Albuminuria: > 300 ug/mg creatinine Urine (Urine, Random) 03/14/2024 10:43 AM EDT 03/14/2024 12:06 PM EDT us Sadia Leon DO LAB URINE ORDERABLES Final R esult Performing Organization Address [facility] Co de Phone Number [facility] [address] [place] [phone] * Lipid Panel, Standard (03/14/2024 10:43 AM EDT) Triglycerides 65 <150 mg/dL [facility] Comment:Desirable Triglyceri de: less than 150 mg/dLBorderline High Triglyceride 150-199 mg/dLHigh Triglyceride: 200-499 mg/dLVery High Triglyceride: greater than or equal to 5OO mg/dL Cholesterol 101 <200 mg/dL [facility] Comment:Desirable Cholestero l: less than 200 mg/dLBorderline High Cholesterol: 200-239 mg/dLHigh Cholesterol: greater than 239 mg/dL LDL Cholesterol Calculated 46 <100 mg/dL [facility] Comment:Desirable LDL: less than 100 mg/dLNear Optimal/Above Optimal LDL: 110- 129 mg/dLBorderline High LDL: 130-159 mg/dLHigh LDL: 160-189 mg/dLVery High LDL: greater than or equal to 190 mg/dL HDL Cholesterol 42 >40 mg/dL [facility] Comment:Desirable HDL: great er than 40 mg/dL Note: This HDL assay may give artificially low results in patients with liver disease. Blood Venous blood specimen / Unknown 03/14/2024 10:43 AM EDT 03/14/2024 12:01 PM EDT us Sadia Leon DO LAB BLOOD ORDERABLES Final R esult Performing Organization Address [facility]/ZIP Co de Phone Number [facility] [address] [place] [phone] from Last 3 Months or Most Recently Relevant to Health Maintenance Insurance [facility] Advance Directives Documents on File Type Date Recorded Patient High Rigger Expl anation Advance Directives and Living Will 04/22/2024 Health Care Proxy 04/22/24 Care Teams Divisional Merchandising Manager Relationship Specialty Start Date End Date Sadia Leon DO [address] [place] [address] PCP - General Family Medicine 10/11/18 Dede Calles PharmD [address] [place] [address] Pharmacist Internal Medicine 05/12/23 Miriam PHOENIX 07/25/24
--- OUTSIDE RECORDS SUMMARY | 2024-12-19 17:17 | XMS_ITS | Encounter Summary ---
Author Organization [employer] Address [address] [facility] 7t [place] [address] Care Team Providers Care Fish Hatchery Worker Name Role Phone Sadia Leon DO Primary Care Provider [phone] Dede Calles PharmD Unavailable [phone] Reason for Visit * Reason Onset Date Comments FYI 12/18/2024 Encounter Details Date Type Department Care Team ([facility] st Contact Info) Description 12/18/2024 Telephone [facility] MEDICINE [address] [place], [place] [phone] Sadia Leon DO [address] [place] [address] FYI Social History Tobacco Use Types Packs/Day Years Used Date Smoking Tobacco: Every Day Cigarettes Passive Smoke Exposure: Never Smokeless Tobacco: Never Alcohol Use Standard Drinks/Week Comments Never 0 [...] not to disclose 2021 10:19 AM EDT documented as of this encounter Miscellaneous Notes * Telephone Encounter - Isabelle Logan RN - 12/18/2024 10:18 AM EDT Telephone call placed to patient in regards to message below. No answer, dial tone. Patient to callas needed. If patient calls back, they do not have to confirm appointment, they can just ignore the text to eliminate the issue of accidentally canceling. * Telephone Encounter - Meño Pop - 12/18/2024 9:25 AM EDT Pt sister requesting to see if its p[possible for them to Confirm Apt with her due to pt Strugglingconfirming apt and sometimes he ends up Canceling them By mistake or if they can call her after calling pt just so she is aware. Contact pt sister at [phone] documented in this encounter Plan of Treatment Upcoming Encounters Date Type Department Care Team (Late st Contact Info) Description 12/29/2024 11:30 AM EDT Office Visit [facility] MEDICINE [address] [place] [address] Name, MD Keaton [address] [place] [address] documented as of this encounter Goals Goal Patient Goal Type Associated Problems Recent Progress Patient-Stated? Author Hemoglobin A1c < 7.5 Result Component 8.9( 4 1:28 PM EDT) No Alan Maki PharmD Record your blood sugar as directed Result Component No Dede Calles PharmD Note: Use CGM, ensuring sensor is scanned at least once every 8 hours to capture 24H data. Check BG manually, as directed. documented as of this encounter Visit Diagnoses Not on filedocumented in this encounter Additional Health Concerns Assessment Noted Time PHQ-9 Depression Total Score: 2 03/14/20 24 9:16 AM EDT documented as of this encounter Care Teams Fish Hatchery Worker Relationship Specialty Start Date End Date Sadia Leon DO [address] [place] [address] PCP - General Family Medicine 10/11/18 Dede Calles PharmD [address] [place] [address] Pharmacist Internal Medicine 05/12/23 Miriam PHOENIX 07/25/24 documented as of this encounter
--- OUTSIDE RECORDS SUMMARY | 2024-12-19 17:17 | XMS_ITS | Encounter Summary ---
Author Organization [employer] Address [address] [facility] 7t [place] [address] Care Team Providers Care Expansion Joint Builder Name Role Phone Sadia Leon DO Primary Care Provider [phone] Dede Calles PharmD Unavailable [phone] Reason for Visit * Reason Comments Med Refill Encounter Details Date Type Department Care Team ([facility] st Contact Info) Description 04/03/2024 Refill [facility] & PEDS [address] [place] [address] Sadia Leon DO [address] [place] [address] Low back pain, unspecified back pain laterality, unspecified chronicity, unspecified whether sciatica present Social History Tobacco Use Types Packs/Day Years Used Date Smoking Tobacco: Every Day Cigarettes Passive Smoke Exposure: Never Smokeless Tobacco: Never Depression Answer Date Recorded Patient Health Questionnaire-9 [...] AM EDT documented as of this encounter Plan of Treatment Upcoming Encounters Date Type Department Care Team (Late st Contact Info) Description 12/29/2024 11:30 AM EDT Office Visit [facility] MEDICINE [address] [place] [phone] Name, MD Keaton [address] [place] [phone] documented as of this encounter Goals Goal [...] documented as of this encounter Visit Diagnoses Diagnosis Low back pain, unspecified back pain laterality, unspecified chronicity, unspecified whether sciatica present documented in this encounter Additional Health Concerns Assessment Noted Time PHQ-9 Depression Total Score: 2 03/14/20 24 9:16 AM EDT documented as of this encounter Care Teams Expansion Joint Builder Relationship Specialty Start Date End Date Sadia Leon DO [address] [place] [phone] PCP - General Family Medicine 10/11/18 Dede Calles, PharmD [address] [place] [phone] Pharmacist Internal Medicine 05/12/23 Miriam PHOENIX 07/25/24 documented as of this encounter
--- OUTSIDE RECORDS SUMMARY | 2024-12-19 17:17 | XMS_ITS | Encounter Summary ---
Author Organization [employer] Address 75 [facility] 7t [place] [address] Care Team Providers Care Nsh Teacher Name Role Phone Sadia Leon DO Primary Care Provider [phone] Dede Calles PharmD Unavailable [phone] Reason for Visit * Reason Comments Med Refill Encounter Details Date Type Department Care Team (Late st Contact Info) Description 10/12/2023 Refill [facility] MED & PEDS [address] [place], [place] [phone] Ronel Shah MD [address] [place] [phone] Low back pain, unspecified back pain laterality, unspecified chronicity, unspecified whether sciatica present Social History Tobacco Use Types Packs/Day Years Used Date Smoking Tobacco: Every Day Cigarettes Passive Smoke Exposure: Never Smokeless Tobacco: Never Sex and Gender Information Value Date Recorded [...] Description 12/29/2024 11:30 AM EDT Office Visit [facility] MEDICINE [address] [place] [phone] Keaton Higgins MD [address] [place] [address] documented as of this encounter Goals Goal [...] whether sciatica present documented in this encounter Care Teams Nsh Teacher Relationship Specialty Start Date End Date Sadia Leon DO [address] [place] [address] PCP - General Family Medicine 10/11/18 Dede Calles PharmD [address] [place] [address] Pharmacist Internal Medicine 05/12/23 Miriam PHOENIX 07/25/24 documented as of this encounter
--- OUTSIDE RECORDS SUMMARY | 2024-12-19 17:17 | XMS_ITS | Encounter Summary ---
Author Organization [employer] Address [address] [facility] 7t [place] [address] Care Team Providers Care Environmental Designer Name Role Phone Sadia Leon DO Primary Care Provider [phone] Dede Calles PharmD Unavailable [phone] Reason for Visit * Reason Comments Med Refill Encounter Details Date Type Department Care Team ([facility] st Contact Info) Description 12/05/2024 Refill [facility] MEDICINE [address] [place], [place] [phone] Sadia Leon DO [address] [place] [address] Chronic atrial fibrillation (CMS/HCC) (Primary Dx) Social History Tobacco Use Types Packs/Day Years [...] Description 12/29/2024 11:30 AM EDT Office Visit [facility] MEDICINE [address] [place] [address] [phone] Name, MD Keaton [address] [place] [address] documented as of this encounter Goals Goal [...] as of this encounter Visit Diagnoses Diagnosis Chronic atrial fibrillation (CMS/HCC)- Primary Atrial fibrillation documented in this encounter Additional Health Concerns Assessment Noted Time PHQ-9 Depression Total Score: 2 03/14/20 24 9:16 AM EDT documented as of this encounter Care Teams Environmental Designer Relationship Specialty Start Date End Date Sadia Leon DO [address] [place] [phone] PCP - General Family Medicine 10/11/18 Dede Calles, KeyurD [address] [place] [phone] Pharmacist Internal Medicine 05/12/23 Miriam PHOENIX 07/25/24 documented as of this encounter
--- OUTSIDE RECORDS SUMMARY | 2024-12-19 17:17 | XMS_ITS | Encounter Summary ---
Author Organization [email or web address] Address [address] [facility] 7t [place] [address] Care Team Providers Care Duplication Specialist Name Role Phone AmairaniSadia strong Primary Care Provider [phone] Dede Calles PharmD Unavailable [phone] Encounter Details Date Type Department Care Team (Latest Contact Info) Description 12/19/2024 Travel Social History Tobacco Use Types Packs/Day Years [...] Description 12/29/2024 11:30 AM EDT Office Visit [facility] MEDICINE [address] [place], [place] [phone] Name, MD Keaton [address] [place], [place] [phone] documented as of this encounter Goals Goal [...] documented as of this encounter Care Teams Duplication Specialist Relationship Specialty Start Date End Date Sadia Leon DO [address] [place] [address] PCP - General Family Medicine 10/11/18 Dede Calles PharmD [address] [place] [address] Pharmacist Internal Medicine 05/12/23 Miriam PHOENIX 07/25/24 documented as of this encounter
--- OUTSIDE RECORDS SUMMARY | 2024-12-19 17:17 | XMS_ITS | Encounter Summary ---
Author Organization [employer] Address [address] [facility] 7t [place] [address] Care Team Providers Care Printer Floor Covering Assistant Name Role Phone AmairaniSadia strong Primary Care Provider [phone] Dede Calles PharmD Unavailable [phone] Reason for Visit * Reason Onset Date Comments Appointment Request 12/14/2024 Hospital Follow-up 12/14/2024 Encounter Details Date Type Department Care Team ([facility] st Contact Info) Description 12/14/2024 Telephone [facility] [address] [place], [place] [phone] Dejah No, PURA [address] [place], [place] [phone] Appointment Request; Hospital Follow-up Social History Tobacco Use Types Packs/Day Years [...] encounter Miscellaneous Notes * Telephone Encounter - Dejah No RN - 12/14/2024 2:14 PM EST Pt walked into green team lobby to check in for his HDF with [facility]. However, HDF was cancelled via text message and another pt was in that slot. Provider unable to see pt. This is the second time that pt's appt was cancelled via text message by mistake by pt. Advised not to reply to the text message going forward. R/Sd HDF for 12/19/24 with Name. documented in this encounter Plan of Treatment Upcoming Encounters Date Type Department Care Team (Late st Contact Info) Description 12/29/2024 11:30 AM EDT Office Visit [facility] [address] [place] [address] Name, MD Keaton [address] [place] [address] documented as of this encounter Goals Goal Patient Goal Type Associated Problems Recent Progress Patient-Stated? Author Hemoglobin A1c < 7.5 Result Component 8.9( 4 1:28 PM EDT) No Alan Maki, PharmD Record your blood sugar as directed Result Component No Puia, Ddee, PharmD Note: Use CGM, ensuring sensor is scanned at least once every 8 hours to capture 24H data. Check BG manually, as directed. documented as of this encounter Visit Diagnoses Not on filedocumented in this encounter Additional Health Concerns Assessment Noted Time PHQ-9 Depression Total Score: 2 03/14/20 24 9:16 AM EDT documented as of this encounter Care Teams Printer Floor Covering Assistant Relationship Specialty Start Date End Date Sadia Leon DO [address] [place] [address] PCP - General Family Medicine 10/11/18 Dede Calles PharmD [address] [place] [address] Pharmacist Internal Medicine 05/12/23 Miriam PHOENIX 07/25/24 documented as of this encounter
--- OUTSIDE RECORDS SUMMARY | 2024-12-19 17:17 | XMS_ITS | Encounter Summary ---
Author Organization [employer] Address [address] [facility] 7t [place] [address] Care Team Providers Care Desizing Machine Offbearer Name Role Phone Sadia Leon DO Primary Care Provider [phone] Dede Clales PharmD Unavailable [phone] Reason for Visit * Reason Onset Date Comments Appointment Request 04/04/2024 Encounter Details Date Type Department Care Team ([facility] st Contact Info) Description 04/04/[address] [facility] MEDICINE [address] [place], [place] [phone] Sadia Leon DO [address] [place], [place] [phone] Appointment Request Social History Tobacco Use Types Packs/Day Years [...] encounter Miscellaneous Notes * Telephone Encounter - Lindsay Guevara - 04/04/2024 4:15 PM EDT Tc from pt requesting an appointment with PCP in regards to medication list and drug interactions. Please contact pt at [phone] documented in this encounter Plan of Treatment Upcoming Encounters Date Type Department Care Team (Late st Contact Info) Description 12/29/2024 11:30 AM EDT Office Visit [facility] MEDICINE [address] [place] [address] [phone] Name, MD Keaton [address] [place] [address] documented as of this encounter Goals Goal Patient Goal Type Associated Problems Recent Progress Patient-Stated? Author Hemoglobin A1c < 7.5 Result Component 8.9( 1:28 PM EDT) No Dellogfrances Alan, PharmD Record your blood sugar as directed [...] documented as of this encounter Care Teams Desizing Machine Offbearer Relationship Specialty Start Date End Date Sadia Leon DO [address] [place], [place] [phone] PCP - General Family Medicine 10/11/18 Dede Calles PharmD [address] [place], [place] [phone] Pharmacist Internal Medicine 05/12/23 Miriam PHOENIX 07/25/24 documented as of this encounter
--- OUTSIDE RECORDS SUMMARY | 2024-12-19 17:17 | XMS_ITS | Encounter Summary ---
Author Organization [employer] Address [address] [facility] [address] [place] [address] Care Team Providers Care Skiver Machine Operator Name Role Phone Sadia Leon Primary Care Provider [phone] Dede Calles PharmD Unavailable [phone] Reason for Referral * Medications - Closed Specialty Diagnoses / Procedures Referred By Contac t Referred To Contact Diagnoses Type 2 diabetes mellitus without complication, with long-term current use of insulin ([facility]) Keaton Higgins MD [address] [place] [address] Phone: tel: fax: Referral ID Status Reason Start Date Expiration Date Visits Re quested Visits Authorized [id number] Closed 1 1 * Medications - Closed Specialty Diagnoses / Procedures [facility]erred To Contact Diagnoses Type 2 diabetes mellitus without complication, with long-term current use of insulin ([facility]) Keaton Higgins MD [address] [place] [address] Phone: tel: fax: Referral ID Status Reason Start Date Expiration Date Visits Re quested Visits Authorized [id number] Closed 1 1 Reason for Visit * Reason Comments F Encounter Details Date Type Department Care Team ([facility] st Contact Info) Description 12/19/2024 1:15 PM EDT Office Visit [facility] [address] [place] [address] Keaton Higgins MD [address] [place] [address] Chronic obstructive pulmonary disease, unspecified COPD type (CMS/HCC) (Primary Dx); Chronic atrial fibrillation (CMS/HCC); Non-small cell carcinoma of lung, right (CMS/HCC); Type 2 diabetes mellitus without complication, with long-term current use of insulin (CMS/HCC) Social History Tobacco Use Types Packs/Day Years [...] the past 12 months, has t he [employer], gas, oil or water [employer] threatened to shut off services in your home? No 03/14/2024 Depression Answer Date Recorded Patient Health Questionnaire-2 Score 0 03/14/2024 Sex and Gender Information Value Date Recorded Sex Assigned at Male 08/10/2022 10:19 AM EDT Legal Sex Male 10:19 AM EDT Gender Identity Male 08/10/2022 10:19 AM EDT Sexual Orientation Choose not to disclose 2021 10:19 AM EDT documented as of this encounter Last Filed Vital Signs Vital Sign Reading [...] Mass Index 23.99 12/19/2024 1:20 PM EDT documented in this encounter Progress Notes * Keaton Higgins, - 12/19/2024 1:15 PM EDT Subjective Patient ID: Yosef Alvarez is a 74 y.o. male who presents for HDF. Patient comes accompanied by his sister for a posthospitalization visit. He is a lifelong smoker, with COPD, he requires oxygen supplementation, he has lung cancer. Today he complains of cough, wheezing, increase sputum production, worsening from his baseline shortness of breath. Oxygen saturation is 88 to 90% on 2 L. Unfortunately he continues smoking cigarettes but he is cutting down. His sister explains to me that he has upcoming appointment for PFTs and a PET scan. He follows with pulmonaryand oncology at [facility]. Summary of recent hospitalizations as written below: [facility] (07/25/2024 - 08/29/2024) Patient transferred to [facility] after being found down at home without oxygen. Treated for hypoxic respiratory failure and found lung mass/carcinoma. Discharged and transferred to SNF. Medication changes that occurred during hospitalization include: ?? Added: none ?? Changed: none ?? Discontinued: acetaminophen, baclofen, cetirizine, cholecalciferol, lisinopril, oxycodone [facility] (08/29/2024 - 10/23/2024) Patient was transferred from [facility] for continuity of care following discharge for respiratory care and lung carcinoma. No medication changes occurred [facility] (11/07/2024 - 11/15/2024) Patient presented for DARRELL and hyperkalemia, found to be in Afib with RVR. Treated with IV digoxin due to hypotension, HR and BP normalized, transitioned back to diltiazem XL 160 mg. Diltiazem was titrated to 240 mg with good effect. Patient had a cough, chest x-ray showed increasing diffuse interstitial infiltrates thought to be pulmonary vascular congestion/acute interstitial edema. Treated for COPD exacerbation which improved with prednisone and azithromycin. Patient's sister had concerns that they were unsafe living at home, discharged to respite. Medication changes that occurred during hospitalization include: ?? Added ?? Guaifenesin 600 mg by mouth two times daily ?? Nicotine polacrilex 2 mg gum: [address] 1 piece inside the cheek every 2 hours as needed ?? Changed ?? Diltiazem increased from 120 mg to 240 mg by mouth once daily ?? Lantus Solostar U-100 decreased from 40 units to 20 units subcutaneously once daily ?? Discontinued: baclofen, cetirizine, lidocaine 4%, lisinopril [facility] (11/15/2024 - 11/20/2024) Patient admitted for short respite stay. Review of Systems Constitutional: Negative for chills and fever. Respiratory: Positive for cough, shortness of breath and wheezing. Cardiovascular: Negative for chest pain, palpitations and leg swelling. Visit Vitals BP 119/65 (BP Location: Left arm, Patient Position: Sitting, BP Cuff Size: Adult) Pulse 94 Temp 98.1 ??F (36.7 ??C) (Temporal) Resp 12 Ht 5' 8 (1.727 m) Wt 157 lb 12.8 oz (71.6 kg) SpO2 90% BMI 23.99 kg/m?? Smoking Status Every Day BSA 1.85 m?? Objective Physical Exam Constitutional: Appearance: Normal appearance. Cardiovascular: Rate and Rhythm: Normal rate. Rhythm irregular. Heart sounds: No murmur heard. Pulmonary: Effort: Pulmonary effort is normal. No respiratory distress. Breath sounds: Wheezing and rhonchi present. Abdominal: Palpations: Abdomen is soft. Tenderness: There is no abdominal tenderness. Musculoskeletal: Right lower leg: No edema. Left lower leg: No edema. Neurological: Mental Status: He is alert. Assessment/Plan Diagnoses and all orders for this visit: Chronic obstructive pulmonary disease, unspecified COPD type (CMS/HCC) Comments: Patient has a COPD exacerbation. I recommended to quit smoking, continue on his current inhalers, continue oxygen supplementation athome, I prescribed a course of Doxy and prednisone, I recommended evaluation with chest x-ray. I asked him to follow-up with me next week. I encouraged the patient to keep his upcoming appointments with pulmonary and oncology at [facility] scheduled for next week. Continue rate control and anticoagulation for A-fib. I prescribed the patient a new CGM to monitor his blood sugars at home. He is recommended to bring his CGM reader to his next appointment. Orders: - XR Chest 2 Views; Future Chronic atrial fibrillation (CMS/HCC) Non-small cell carcinoma of lung, right (CMS/HCC) - XR Chest 2 Views; Future Type 2 diabetes mellitus without complication, with long-term current use of insulin (CMS/HCC) - Continuous Glucose Rail Doweling Machine Operator (FreeStyle Fuad 3 Minong) device; 1 each Once per day. Use as directed for CGM - Continuous Glucose Sensor (FreeStyle Fuad 3 Plus Sensor) [facility]; 1 each every 15 days. Apply 1 every 15 days as directed for CGM Other orders - predniSONE (Deltasone) 20 MG tablet; Take 2 tablets (40 mg) by mouth Once per day for 5 days. - doxycycline (Vibra-Tabs) 100 MG tablet; Take 1 tablet (100 mg) by mouth 2 times daily for 10 days. Take with a full glass of water and do not lie down for at least 30 minutes after. - dilTIAZem CD (Cardizem CD) 120 MG 24 hr capsule; Take 2 capsules (240 mg) by mouth Once per day. - glucose blood (FreeStyle Precision Jesus Test) test strip; Use to test blood sugar 3 times daily incase of CGM failure or extremes of BG documented in this encounter Plan of Treatment Upcoming Encounters Date Type Department Care Team (Late st Contact Info) Description 12/29/2024 11:30 AM EDT Office Visit [facility] [address] [place] [address] Name, MD Keaton [address], [place] [phone] documented as of this encounter Goals Goal [...] as directed. documented as of this encounter Procedures Procedure Name Priority Date/Time Associated Diagnosis Comments XR CHEST 2 VIEWS Routine 12/19/2024 2:06 PM EDT Chronic obstructive pulmonary disease, unspecified COPD type (CMS/HCC) Non-small cell carcinoma of lung, right (CMS/HCC) documented in this encounter Results * XR Chest 2 Views (12/19/2024 2:06 PM EDT) Anatomical Region Laterality Modality Chest Radiographic Amaya ging 12/19/2024 2:06 PM EDT Narrative 12/19/2024 2:35 PM EDT ?[facility] ?[address] ?[place] [address] ?XRay Report ? Signed ? Patient: Yosef Alvarez ?MR#: [id number] ?? 53 ? : 1950 ?Acct:[id number] ? Age/Sex: 74 / M ?ADM Date: 12/19/24 ? Loc: HO.HHCX ? Attending : Keaton Higgins MD ? Ordering Physician: Keaton Higgins MD ?? Date of Service: 12/19/24 ?? Procedure(s): XR chest 2V ?? Accession Number(s): [id number] ? cc: Name,Keaton TOURE ? EXAMINATION: ?? XR CHEST ? CLINICAL [...] Houser MD ??12/19/2024 02:32 PM ?? EDT RP ? Dictated By: ?Austen Becker MD ? Signed By: ?<Electronically signed by Austen No MD in OV> ? 12/19/24 1432 ? DD/ 1406 ? TD/TT: 12/19/24 1420 ? Tipping Machine Operator: ? Procedure Note Donjoster, Image - 12/19/[address] [address] XRay Report Signed Patient: Yosef lAvarez AMR#: [id number] [birth year] : 1950Acct:[id number] Age/Sex: 74 / MADM Date: 12/19/24 Loc: HO.HHCX Attending Dr: Keaton Higgins MD Ordering Physician: Keaton Higgins MD Date of Service: 12/19/24 Procedure(s): XR chest 2V Accession Number(s): [id number] cc: Keaton Higgins MD EXAMINATION: XR CHEST [...] 12/19/24 1432 DD/ 1406 TD/TT: 12/19/24 1420 Tipping Machine Operator: Keaton Name IMG XR PROCEDURES Final Result documented in this encounter Visit Diagnoses Diagnosis Chronic obstructive pulmonary disease, unspecified COPD type (CMS/HCC)- Primary Chronic atrial fibrillation (CMS/HCC) Atrial fibrillation Non-small cell carcinoma of lung, right (CMS/HCC) Type 2 diabetes mellitus without complication, with long-term current use of insulin (CMS/HCC) documented in this encounter Additional Health Concerns Assessment Noted Time PHQ-9 Depression Total Score: 2 03/14/20 24 9:16 AM EDT documented as of this encounter Care Teams Skiver Machine Operator Relationship Specialty Start Date End Date Sadia Leon DO [address] [place] [address] PCP - General Family Medicine 10/11/18 Dede Calles PharmD [address] [place] [address] Pharmacist Internal Medicine 05/12/23 Miriam PHOENIX 07/25/24 documented as of this encounter
--- OUTSIDE RECORDS SUMMARY | 2024-12-19 17:17 | XMS_ITS | Encounter Summary ---
Author Organization [employer] Address [address] [facility] 7t [place] [address] Care Team Providers Care Carpentry Specialist Name Role Phone AmairaniSadia strong Primary Care Provider [phone] Dede Calles PharmD Unavailable [phone] Reason for Visit * Reason Onset Date Comments Care Coordination 11/28/2024 Encounter Details Date Type Department Care Team ([facility] st Contact Info) Description 11/28/2024 Telephone [facility] [address] [place] [address] Eulalia Todd, PharmD [address] [place] [address] Care Coordination Social History Tobacco Use Types Packs/Day Years [...] encounter Miscellaneous Notes * Telephone Encounter - Pili Ambriz - 11/30/2024 10:53 AM EST Call was made to [facility] for guidelines for ordering O2 Concentrator. Order form for Concentrator specific to [facility] was faxed to this lyric writer's attention and completed as suggested by [facility] staff. Form has been completed and pending for signature from ordering provider. * Telephone Encounter - Francie Rogel RN - 11/28/2024 11:59 AM EST TC placed to patient [phone] to inform patient a message has been sent to the provider to inquire if appointment for tomorrow can be changed to TV d/t O2 needs. Patient advised once provider responds, he will receive a phone call with POC. Patient verbalized understanding and requested RN callpatients sister and inform her tomorrow if appointment can be over the phone (number in chart). RN w ill f/u with sister tomorrow. documented in this encounter Plan of Treatment Upcoming Encounters Date Type Department Care Team (Late st Contact Info) Description 12/29/2024 11:30 AM EDT Office Visit [facility] [address] [place] [address] Name, MD Keaton [address] [place] [address] documented as of this encounter Goals Goal [...] documented as of this encounter Care Teams Carpentry Specialist Relationship Specialty Start Date End Date Sadia Leon DO [address] [place] [address] PCP - General Family Medicine 10/11/18 Dede Calles PharmD [address] [place] [address] Pharmacist Internal Medicine 05/12/23 Miriam PHOENIX 07/25/24 documented as of this encounter
--- OUTSIDE RECORDS SUMMARY | 2024-12-19 17:17 | XMS_ITS | Encounter Summary ---
Author Organization [employer] Address [address] [facility] [address] [place] [address] Care Team Providers Care Client Delivery Specialist Name Role Phone Sadia Leon DO Primary Care Provider [phone] Dede Calles PharmD Unavailable [phone] Reason for Visit * Reason Comments Med Refill Encounter Details Date Type Department Care Team ([facility] st Contact Info) Description 12/12/2024 Refill [facility] [address] [place], [place] [phone] Sadia Leon DO [address] [place] [address] Chronic atrial fibrillation (CMS/HCC) Social History Tobacco Use Types Packs/Day [...] Description 12/29/2024 11:30 AM EDT Office Visit [facility] [address] [place] [phone] Name, MD Keaton [address] [place] [address] documented as of this encounter Goals Goal [...] encounter Visit Diagnoses Diagnosis Chronic atrial fibrillation (CMS/HCC) Atrial fibrillation documented in this encounter Additional Health Concerns Assessment Noted Time PHQ-9 Depression Total Score: 2 03/14/20 24 9:16 AM EDT documented as of this encounter Care Teams Client Delivery Specialist Relationship Specialty Start Date End Date Sadia Leon DO [address] [place] [address] PCP - General Family Medicine 10/11/18 Dede Calles PharmD [address] [place] [phone] Pharmacist Internal Medicine 05/12/23 Miriam PHOENIX 07/25/24 documented as of this encounter
--- OUTSIDE RECORDS SUMMARY | 2024-12-19 17:17 | XMS_ITS | Data Portability ---
Author Organization [facility], Ar in - [facility] Address [address] [place] [id number] Care Team Providers Care Chain Machine Operator Name Role Phone HIM [facility] OTHER [facility] OTHER Assessment Encounter Date Assessment Date Assessment LastModified by Organization Details LastModified Time 08/01/2024 08/01/2024 service called for LE edema found 74 patrick with hx COPD, HTN, T2DM c/o b/l LE edema x2d denies new chest pain/SOB reports prior episode of LE edema 2-3 months prior denies new exertion, overuse, fall VSS rpeorted exam pitting edema b/l LE to ankles POC BMP K 4.8 BUN 19 Cr 0.7 #LE edema at this time appears isolated does not appear to have standing requirement for diuresis trial PO lasix 20 mg PO x1 notify service if no improvement otherwise return to primary team [email or web address] Not available 08/01/2024 18:01:50 Plan of Treatment Reminders Order Date Submit Date Provider Last Modified By Organization Details Last Modified Time Details Appointments None recorded. Lab BMP, serum or plasma 2023 [facility], [address] [place] [address], [id number], 09:03:37 Referral None recorded. Procedures None recorded. Surgeries None recorded. Imaging None recorded. Medication Orders furosemide 20 mg tablet 2023 [email or web address] Not available 17:59:07 Patient TargetsNo targets recorded. Patient InstructionsNo instructions recorded. Reason for Referral None Reported. Results Created Date Observation Date Name Description Value Unit Range Abnormal Flag Note LastModifiedBy Organization Detail LastModifiedTime Result Notes None recorded. Medical Equipment None Reported. Medications Name Sig Start Date Stop Date Status Note LastModified by Organization Details LastModified Time atorvastatin 40 mg tablet TAKE 1 TABLET BY MOUTH EVERY DAY AT BEDTIME active Not Available Not Available No t Available nicotine 14 mg/24 hr daily transdermal patch APPLY 1 PATCH TOPICALLY TO THE SKIN IN THE MORNING DO NOT SMOKE WHILE USING PATCH active Not Available Not Available No t Available cetirizine 10 mg tablet TAKE 1 TABLET BY MOUTH EVERY DAY active Not Available Not Available No t Available lisinopril 20 mg-hydrochlo rothiazide 12.5 mg tablet TAKE 1 TABLET BY MOUTH TWICE DAILY active Not Available Not Available No t Available prednisone 20 mg tablet TAKE 2 TABLETS DAILY FOR 2 DAYS, TAKE 1 AND 1/2 TABLETS DAILY FOR 2 DAYS, TAKE 1 TABLET DAILY FOR 2 DAYS, TAKE 1/2 TABLET DAILY FOR 2 DAYS active Not Available Not Available No t Available acetaminophe n ER 650 mg tablet,exten ded release TAKE 1 TABLET BY MOUTH EVERY 6 HOURS NEEDED FOR PAIN OR FEVER active Not Available Not Available No t Available baclofen 10 mg tablet TAKE 1 TABLET BY MOUTH THREE TIMES DAILY NEEDED FOR MUSCLE SPASMS OR PAIN active Not Available Not Available No t Available gabapentin 300 mg capsule TAKE 1 CAPSULE BY MOUTH THREE TIMES DAILY active Not Available Not Available Not Available diltiazem CD 120 mg capsule,exte nded release 24 hr active Not Available Not Available Not Available lisinopril 5 mg tablet TAKE 1 TABLET BY MOUTH EVERY DAY active Not Available Not Available No t Available mometasone 0.1 % topical ointment APPLY TO THE AFFECTED AREA(S) TOPICALLY ONCE DAILY active Not Available Not Available N ot Available albuterol sulfate HFA 90 mcg/actuatio n aerosol inhaler INHALE 2 PUFFS BY MOUTH EVERY 4 TO 6 HOURS NEEDED active Not Available Not Available No t Available Alcohol Prep Pads USE WITH INSULIN AND USE DIRECTED TO TEST BLOOD SUGAR THREE TIMES DAILY NEEDED active Not Available Not Available No t Available Lantus Solostar U-100 Insulin 100 unit/mL (3 mL) subcutaneous pen INJECT 40 UNITS SUBCUTANEOU SLY EVERY DAY active Not Available Not Available No t Available oxycodone 10 mg tablet TAKE 1 TABLET BY MOUTH EVERY 6 HOURS NEEDED FOR SEVERE PAIN active Not Available Not Available Not Available diclofenac 1 % topical gel APPLY 2 GRAMS TOPICALLY FOUR TIMES DAILY NEEDED active Not Available Not Available No t Available cholecalcife rol (vitamin D3) 50 mcg (2,000 unit) tablet active Not Available Not Available Not Available Vitamin D3 50 mcg (2,000 unit) capsule TAKE 1 CAPSULE BY MOUTH EVERY DAY active Not Available Not Available No t Available UltiCare Pen Needle 32 gauge x USE WITH INSULIN EVERY DAY DIRECTED active Not Available Not Available Not Available Eliquis 5 mg tablet active Not Available Not Available Not Available Trulicity 1.5 mg/0.5 mL subcutaneous pen injector INJECT ONE PEN (=1.5MG) SUBCUTANEOU SLY ONCE A WEEK DIRECTED active Not Available Not Available No t Available Synjardy 12.5 mg-1,000 mg tablet TAKE 1 TABLET BY MOUTH TWICE DAILY IN THE MORNING AND IN THE EVENING WITH MEALS active Not Available Not Available N ot Available naloxone 4 mg/actuation nasal spray FOR SUSPECTED OPIOID OVERDOSE. SPRAY 0.1mL IN ONE NOSTRIL. REPEAT IN ALTERNATE NOSTRIL 2-3 MINUTES IF NEEDED. SEEK MEDICAL ATTENTION IMMEDIATELY EVEN IF PATIENT RESPONDS. active Not Available Not Available No t Available FreeStyle Fuad 2 Sensor kit USE DIRECTED TO TEST BLOOD SUGAR CHANGE EVERY 14 DAYS active Not Available Not Available No t Available Trulicity 3 mg/0.5 mL subcutaneous pen injector INJECT ONE PEN (= 3MG) SUBCUTANEOU SLY ONCE A WEEK DIRECTED active Not Available Not Available No t Available Trelegy Ellipta 200 mcg-62.5 mcg-25 mcg powder for inhalation INHALE 1 PUFF BY MOUTH EVERY DAY AT THE SAME TIME active Not Available Not Available No t Available Ozempic 0.25 mg or 0.5 mg (2 mg/3 mL) subcutaneous pen injector INJECT 0.5 MG SUBCUTANEOU SLY ONCE A WEEK FOR 28 DAYS active Not Available Not Available No t Available Vitals Date Recorded Body temperature Heart rate Respiratory rate Oxygen saturation Oxygen saturation in Arterial blood by Pulse oximetry Systolic blood pressure Diastolic blood pressure Provider Name and Address Organization Details Last Updated DateTime 4 99 [degF] 72 /min 16 /min 98 % 98 % 128 mm[Hg] 82 mm[Hg] Not Available [employer] - production 4 16:31:45 Social History None recorded. Functional Status None recorded. Mental Status None recorded. Family History Nothing Reported. Medical History No medical history recorded. Past Encounters Encounter ID Performer Location Encounter Start Date Encounter Closed Date Diagnosis/Indication Diagnosis SNOMED-CT Code Diagnosis ICD10 Code Diagnosis Note [id number] Deidre Mcgee MD Main - [facility] [address] [place] [address] 08/01/2024 16:31:36 08/01/2024 23:57:43 Edema of lower extremity 246733585 R60.0 Health Concerns Section Related Observation LastModified by Organization Kelliepurvi darío LastModified Time None Recorded Concern Status LastModified by Organization Details LastModified Time None Recorded Advance Directives Directive None Recorded Payers Encounter Date Sequence Insurance Name Policy Number Policy Tellez Covered Member ID Tellez Member ID Guarantor Name 08/01/2024 1 [facility] - DOS ON OR AFTER 2023 - DUAL ELIGIBLE - SKILLED NURSING OPTIONS AND ONE CARE (MEDICARE REPLACEMENT/ADV ANTAGE - HMO) Yosef Alvarez [id number] Yosef Alvarez Notes Date Note Type Note Provider Name and Address Organization Details Recorded Time 08/01/2024 text/html HPI: Call returned to [facility] with Miriam Johnson 4+ pitting edema of bilateral pedal edema. Pt having bruising on right foot around lower ankle. Pt having increased pain of feet. No injury to are where having bruising. No swelling of upper extremities, facial swelling, SOB or CP per [facility]. Pt recently started on eliquis. Contact for pt [phone]. Per pt having mild swelling of bilateral feet. Per pt has mild wheezing due to COPD. No worsening SOB or wheezing. Per pt no swelling of hands. Pt denies having swelling like this in past. Pt recently started on Eliquis and Cardizem on 07/[address] Cathi Cruz. Pt advised of disposition, unable to make it to [facility]. Agrees to [facility] for evaluation. Confirmed address, phone number and allergies. ................... ................... ................... ................... ................... ................... ................... ........ CRC Nurse Triage Notes (Ruth Reynoso): Chief Complaints: Edema PMH: COPD/Asthma, Hypertension, Diabetes Comments: CRC RN DID NOT NEED FURTHER INFO Pulp Mill Team Leader Organization Information for Tonny Purdy Legal Name: [employer] (acquired by [employer] in 2014), [employer] Address: [address] [place] [address], Director Of Hemophilia: Lucien Resendiz MD CLIA No.: [id number] Pulp Mill Team Leader POC Test Results from Tonny Purdy iSTAT Chem8+ (16:48:34) Na: 137 mEq/L K: 4.8 mEq/L Cl: 96 mEq/L iCa: 1.10 mmol/L TCO2: 34 mmol/L Glu: 330 mg/dL BUN: 19 mg/dL Crea: 0.7 mg/dL Hct: 55 % Hb: 18.7 g/dL A ................... ................... ................... ................... ................... ................... ................... ........ Pulp Mill Team Leader Note From Tonny Purdy: Dispatched to a male pt. with edema in both of his feet. pt. was found alert and oriented x3 sitting in the living room. apartment very unkept with flies and old food throughout the apartment. fridge was noted to have mold and other dirt throughout the inside but was fully stocked. pt. noted starting yesterday he had noticed swelling and redness in both his feet worse than ever before. noted this has happened before but not this bad and it was from his diabetes. pt. was on oxygen baseline for COPD as well. redness noted on both feet with bruising. positive blood thinners and he noted the bruising after wearing socks on his feet. pt. vitals assessed on scene. -chest pain -sob -abd pain -nvd -weakness -head pain -neck pain -back pain -dizziness -CVA tenderness -urinary issues -bowel issues. pt. assessment airway open and patent breathing non labored circulation +radial pulse -heent abnormalities -jvd -tracheal deviation +and= chest rise and fall abd soft and non tender pelvis in tact +cms in all extremities -stroke scale findings. [facility] contacted and ordered a BMP. completed with 23g butterfly LAC-results forwarded to [facility]. [facility] ordered 20 mg Lasix PO and noted the patient should schedule another [facility] visit tomorrow to reassess the swelling in his feet. no prescription at this time. pt. reminded to keep up with all medications after he noted missing insulin yesterday. red flag warnings discussed and advised to call 911 if any conditions worsened. all times are approx.report completed by barbara purdy ................... ................... ................... ................... ................... ................... ................... ........ Disposition: Anika Mcgee MD [address] [facility],[address], [place], [address], Actual Experience - Pinguo 08/01/2024 20:58:56
--- OUTSIDE RECORDS SUMMARY | 2024-12-19 17:17 | XMS_ITS | Encounter Summary ---
Author Organization [employer] Address [address] [facility] [address] [place] [address] Care Team Providers Care Cross Cut Sawyer Name Role Phone Sadia Leon DO Primary Care Provider Dede Calles PharmD Unavailable Reason for Visit * Reason Comments Med Refill Encounter Details Date Type Department Care Team (Late st Contact Info) Description 10/29/2023 Refill [facility] MED & PEDS [address] [place], [place] [phone] Sadia Leon DO [address] [place] [address] Low back pain, unspecified back pain laterality, [...] Description 12/29/2024 11:30 AM EDT Office Visit [facility] MEDICINE [address] [place] [address] Name, MD Keaton [address] [place] [address] documented as of this encounter Goals Goal [...] present documented in this encounter Care Teams Cross Cut Sawyer Relationship Specialty Start Date End Date Sadia Leon DO [address] [place] [address] PCP - General Family Medicine 10/11/18 Dede Calles PharmD [address] [place] [address] Pharmacist Internal Medicine 05/12/23 Miriam PHOENIX 07/25/24 documented as of this encounter
--- OUTSIDE RECORDS SUMMARY | 2024-12-19 17:17 | XMS_ITS | Encounter Summary ---
Author Organization [employer] Address [address] [facility] [address] [place] [address] Care Team Providers Care Missile Technician Name Role Phone Sadia Leon DO Primary Care Provider [phone] Dede Calles PharmD Unavailable [phone] Reason for Visit * Reason Onset Date Comments Hospital Follow-up 12/01/2024 Encounter Details Date Type Department Care Team ([facility] st Contact Info) Description 12/01/2024 Telephone [facility] MEDICINE [address] [place], [place] [phone] Sadia Leon DO [address] [place], [place] [phone] Hospital Follow-up Social History Tobacco Use Types [...] Telephone Encounter - Isabelle Logan RN - 12/01/2024 12:24 PM EST Telephone call returned to patient in regards to below message. Appointment scheduled for patient for Future Appointments Date Time Provider Department Center 12/14/2024 1:30 PM ANA CRISTINA Siddiqi MEDICINE [facility] Patient verbalized understanding and denied having any further questions or concerns at this time. Patient to follow up as needed. Explained to sister that appointment was cancel via interface and it was not health center--it may have been text. Sister told me not to text them and to make cancellations on the phone. Explained sytem sends text to confirm appointment and it might have been pressed to cancel appointment. * Telephone Encounter - Choco Greenfield - 12/01/2024 11:18 AM EST Tc from pt requesting to r/s Hospital follow up. Pt sister states to please not leave a voice message because they don't always get them. documented in this encounter Plan of Treatment Upcoming Encounters Date Type Department Care Team (Late st Contact Info) Description 12/29/2024 11:30 AM EDT Office Visit [facility] MEDICINE [address] [place] [phone] Name, MD Keaton [address] [place] [address] documented as of this encounter Goals Goal [...] documented as of this encounter Care Teams Missile Technician Relationship Specialty Start Date End Date Sadia Leon DO [address] [place] [address] PCP - General Family Medicine 10/11/18 Dede Calles PharmD [address] [place] [address] Pharmacist Internal Medicine 05/12/23 Miriam PHOENIX 07/25/24 documented as of this encounter
--- OUTSIDE RECORDS SUMMARY | 2024-12-19 17:17 | XMS_ITS | Encounter Summary ---
Author Organization [facility] [employer] Address [address] [facility] [address] [place] [address] Care Team Providers Care Account Support Specialist Name Role Phone Sadia Leon DO Primary Care Provider Dede Calles PharmD Unavailable [phone] Reason for Visit * Reason Comments Med Refill Encounter Details Date Type Department Care Team (Late st Contact Info) Description 05/19/2023 Refill [facility] MEDICINE [address] [place] [phone] Sadia Leon DO [address] [place], [place] [phone] Other chronic pain Social History Tobacco Use Types Packs/Day Years [...] 11:30 AM EDT Office Visit [facility] MEDICINE [address] [place] [phone] Name, MD Keaton [address] [place] [address] documented as of this encounter Goals Goal [...] as of this encounter Visit Diagnoses Diagnosis Other chronic pain documented in this encounter Care Teams Account Support Specialist Relationship Specialty Start Date End Date Sadia Leon DO [address] [place] [address] PCP - General Family Medicine 10/11/18 Dede Calles PharmD [address] [place] [address] Pharmacist Internal Medicine 05/12/23 Miriam PHOENIX 07/25/24 documented as of this encounter
--- OUTSIDE RECORDS SUMMARY | 2024-12-19 17:17 | XMS_ITS | Encounter Summary ---
Author Organization [employer] Address [address] [facility] [address] [place] [address] Care Team Providers Care Flyer Builder Name Role Phone Sadia Leon DO Primary Care Provider [phone] Dede Calles PharmD Unavailable [phone] Reason for Visit * Reason Onset Date Comments Med Refill 11/28/2024 Encounter Details Date Type Department Care Team ([facility] st Contact Info) Description 11/28/2024 Telephone [facility] MEDICINE [address] [place], [place] [phone] Sadia Leon DO [address] [place], [place] [phone] Med Refill Social History Tobacco Use Types Packs/Day Years [...] encounter Miscellaneous Notes * Telephone Encounter - Leni Manriquez LPN - 11/28/2024 10:07 AM EST Lisinopril was discontinued due to side effects * Telephone Encounter - Meño Pop - 11/28/2024 9:54 AM EST TC from pt requesting medication refill. Medications needing refill : lisinopril 5 MG tablet To be sent to: [facility] [address] documented in this encounter Plan of Treatment Upcoming Encounters Date Type Department Care Team (Late st Contact Info) Description 12/29/2024 11:30 AM EDT Office Visit [facility] MEDICINE [address] [place] [address] Name, MD Keaton [address] [place] [address] documented as of this encounter Goals Goal Patient Goal Type Associated Problems Recent Progress Patient-Stated? Author Hemoglobin A1c < 7.5 Result Component 8.9( 1:28 PM EDT) No Alan Maki, PharmD [...] documented as of this encounter Care Teams Flyer Builder Relationship Specialty Start Date End Date Sadia Leon DO [address] [place] [address] PCP - General Family Medicine 10/11/18 Dede Calles PharmD [address] [place] [address] Pharmacist Internal Medicine 05/12/23 Miriam PHOENIX 07/25/24 documented as of this encounter
--- OUTSIDE RECORDS SUMMARY | 2024-12-19 17:17 | XMS_ITS | Encounter Summary ---
Author Organization [employer] Address [address] [facility] [address] [place] [address] Care Team Providers Care Chemicals Fermentation Operator Name Role Phone AmairaniSadia strong Primary Care Provider [phone] Dede Calles PharmD Unavailable [phone] Encounter Details Date Type Department Care Team ([facility] st Contact Info) Description 11/24/2024 Orders Only [facility] MEDICINE [address] [place], [place] [phone] Shell Spann MD [address] [place], [place] [phone] Type 2 diabetes mellitus without complication, with long-term current use of insulin ([facility]) Social History Tobacco Use Types Packs/Day Years [...] AM EDT documented as of this encounter Progress Notes * Shell Spann MD - 11/24/2024 2:46 PM EST Received call from Codi, patient's brother that he is discharged from [facility] for hyperkalemia, but that he is missing three medications: Synjardy 12.02/1000 BID, Theophylline 40mg daily, Diltiazem 120mgER daily. Codi thinks Synjardy is not available/in stock at [facility] so would prefer that the the separate components be sent. Dr. Spann documented in this encounter Plan of Treatment Upcoming Encounters Date Type Department Care Team (Late st Contact Info) Description 12/29/2024 11:30 AM EDT Office Visit [facility] MEDICINE [address] [place] [phone] Name, MD Keaton [address] [place] [address] documented as of this encounter Goals Goal [...] as of this encounter Visit Diagnoses Diagnosis Type 2 diabetes mellitus without complication, with long-term current use of insulin ([facility]) documented in this encounter Additional Health Concerns Assessment Noted Time PHQ-9 Depression Total Score: 2 03/14/20 24 9:16 AM EDT documented as of this encounter Care Teams Chemicals Fermentation Operator Relationship Specialty Start Date End Date Sadia Leon DO [address] [place] [address] PCP - General Family Medicine 10/11/18 Dede Calles PharmD [address] [place] [address] Pharmacist Internal Medicine 05/12/23 Miriam PHOENIX 07/25/24 documented as of this encounter
--- OUTSIDE RECORDS SUMMARY | 2024-12-19 17:18 | XMS_ITS | Encounter Summary ---
Author Organization [facility] [employer] Address [address] [facility] [address] [place] [address] Care Team Providers Care Tower Attendant Name Role Phone Sadia Leon DO Primary Care Provider [phone] Alan Maki PharmD Unavailable Unavail able Dede Calles PharmD Unavailable Reason for Visit * Reason Comments Med Refill Encounter Details Date Type Department Care Team ([facility] Contact Info) Description 12/16/2022 Refill [facility] MEDICINE [address] [place], [place] [phone] Alan Maki, PharmD Type 2 diabetes mellitus without complication, with long-term current use of insulin ([facility]) Social History Tobacco Use Types Packs/Day Years Used Date Smoking Tobacco: Never Assessed Sex and Gender Information Value Date Recorded Sex Assigned at Male 08/10/2022 10:19 AM EDT Legal Sex Male 10:19 AM EDT Gender Identity Male 08/10/2022 10:19 AM EDT Sexual Orientation Choose not to disclose 2021 10:19 AM EDT COVID-19 Exposure Response Date Recorded In the last 10 days, have yo u been in contact with someone who was confirmed or suspected to have Coronavirus/COVID-19? No / Unsure 12/09/2022 3:49 PM EST documented as of this encounter Plan of Treatment Upcoming Encounters Date Type Department Care Team ([facility] Contact Info) Description 12/29/2024 11:30 AM EDT Office Visit [facility] MEDICINE [address] [place], [place] [phone] Name, MD Keaton [address] [place] [address] documented as of this encounter Goals Goal Patient Goal Type Associated Problems Recent Progress Patient-Stated? Author Hemoglobin A1c < 7.5 Result Component 8.9(08/11/2024 1:28 PM EDT) No Alan Maki, PharmD documented as of this encounter Visit Diagnoses Diagnosis Type 2 diabetes mellitus without complication, with long-term current use of insulin ([facility]) documented in this encounter Care Teams Tower Attendant Relationship Specialty Start Date End Date Sadia Leon DO [address] [place] [address] PCP - General Family Medicine 10/11/18 Alan Maki, PharmD [address] [place] [address] Pharmacist Internal Medicine 10/29/22 05/11/23 Dede Calles PharmD [address] [place] [address] Pharmacist Internal Medicine 05/12/23 Miriam PHOENIX 07/25/24 documented as of this encounter
--- OUTSIDE RECORDS SUMMARY | 2024-12-19 17:18 | XMS_ITS | Encounter Summary ---
Author Organization [employer] Address 75 [facility] 7t [place] [address] Care Team Providers Care Turkey Picker Name Role Phone Sadia Leon DO Primary Care Provider +1 [phone] Dede Calles PharmD Unavailable [phone] Reason for Visit * Reason Comments Transition Of Care (Tcm) HDF(Direct) - S cheduled Encounter Details Date Type Department Care Team (Late st Contact Info) Description 11/20/2024 Patient Outreach [facility] MEDICINE [address] [place] [address] Sadia Leon DO [address] [place] [address] Transition Of Care (Tcm) (HDF(Direct) - Scheduled ) Social History Tobacco Use Types Packs/Day Years [...] as of this encounter Miscellaneous Notes * Significant Event - Tor Elias - 11/20/2024 9:56 AM EST 11/20/24 0955 Hospital Discharges and Admission for [facility] Type of Visit Hospital Admission Date of Admission/Visit 11/15/24 Date of Discharge 11/20/24 Facility [facility] Diagnosis paroxysmal atrial fibrillation Disposition Discharged Home Follow-Up Actions Follow-Up Needed Provider appointment Follow-Up Outcome Booked Appointment;Spoke to Caregiver Initial Contact Date 11/20/24 Received incoming call from the Direct Hospital Line. CM Spoke with Nita Reynolds from [facility]. Patient has been scheduled for an HDF appointment on 12/01/2024 at 1:[address] Crowley . CM requested discharge summaries to be faxed to the Care Management Department at [phone]. CC will follow up on discharge summary following patient's discharge. Insurance verified prior to [facility]. documented in this encounter Plan of Treatment Upcoming Encounters Date Type Department Care Team ([facility] st Contact Info) Description 12/29/2024 11:30 AM EDT Office Visit [facility] MEDICINE [address] [place] [address] Name, MD Keaton [address] [place] [address] documented as of this encounter Goals Goal [...] documented as of this encounter Care Teams Turkey Picker Relationship Specialty Start Date End Date Sadia Leon DO [address] [place] [address] PCP - General Family Medicine 10/11/18 Dede Calles PharmD [address] [place] [address] Pharmacist Internal Medicine 05/12/23 Miriam PHOENIX 07/25/24 documented as of this encounter
--- OUTSIDE RECORDS SUMMARY | 2024-12-19 17:18 | XMS_ITS | Encounter Summary ---
Author Organization [employer] Address 75 [facility] 7t [place] [address] Care Team Providers Care Atomizer Assembler Name Role Phone Sadia Leon DO Primary Care Provider +1- [phone] Dede Calles PharmD Unavailable [phone] Reason for Visit * Reason Comments Med Refill Encounter Details Date Type Department Care Team ([facility] st Contact Info) Description 11/24/2024 Refill [facility] MEDICINE [address] [place], [place] [phone] Sadia Leon DO [address] [place] [address] Social History Tobacco Use Types Packs/Day Years [...] Description 12/29/2024 11:30 AM EDT Office Visit [facility] MEDICINE [address] [place] [address] [phone] Name, MD Keaton [address] [place] [address] [phone] documented as of this encounter Goals Goal [...] documented as of this encounter Care Teams Atomizer Assembler Relationship Specialty Start Date End Date Sadia Leon DO [address] [place] [address] [phone] PCP - General Family Medicine 10/11/18 Dede Calles PharmD [address] [place] [address] Pharmacist Internal Medicine 05/12/23 Miriam PHOENIX 07/25/24 documented as of this encounter
--- OUTSIDE RECORDS SUMMARY | 2024-12-19 17:18 | XMS_ITS | Encounter Summary ---
Author Organization [employer] Address [address] [facility] 7t [place] [address] Care Team Providers Care Business Manager Name Role Phone Sadia Leon DO Primary Care Provider +1- [phone] Dede Calles PharmD Unavailable [phone] Reason for Visit * Reason Onset Date Comments Call Back Request 08/03/2024 Encounter Details Date Type Department Care Team ([facility] st Contact Info) Description 08/03/2024 Telephone [facility] MEDICINE [address] [place], [place] [phone] Sadia Leon DO [address] [place], [place] [phone] Call Back Request Social History Tobacco Use Types Packs/Day [...] encounter Miscellaneous Notes * Telephone Encounter - Alex Ambriz - 08/03/2024 10:09 AM EDT Tc from codi and pt calling to confirm pt's appts. Die Out Worker advised all current scheduled appts but Codi is still requesting a call back to further confirm. documented in this encounter Plan of Treatment Upcoming Encounters Date Type Department Care Team (Late st Contact Info) Description 12/29/2024 11:30 AM EDT Office Visit [facility] MEDICINE [address] [place] [address] Name, MD Keaton [address] [place] [address] documented as of this encounter Goals Goal [...] documented as of this encounter Care Teams Business Manager Relationship Specialty Start Date End Date Sadia Leon DO [address] [place] [address] PCP - General Family Medicine 10/11/18 Dede Calles PharmD [address] [place] [address] Pharmacist Internal Medicine 05/12/23 Miriam PHOENIX 07/25/24 documented as of this encounter
--- OUTSIDE RECORDS SUMMARY | 2024-12-19 17:18 | XMS_ITS | Encounter Summary ---
Author Organization [employer] Address 75 [facility] 7t [place] [address] Care Team Providers Care Dance Director Name Role Phone Sadia Leon DO Primary Care Provider [phone]- [phone] Dede Calles PharmD Unavailable Reason for Visit * Reason Onset Date Comments Medication Question 10/31/2024 NNTS- Lab 10/31/2024 Hyperkalemia of 6.5 Encounter Details Date Type Department Care Team (Late st Contact Info) Description 10/31/2024 Telephone [facility] MEDICINE [address] [place], [place] [phone] Sadia Leon DO [address] [place], [place] [phone] Medication Question; NNTS- Lab (Hyperkalemia of 6.5) Social History Tobacco Use Types Packs/Day Years [...] * Telephone Encounter - Pili Ambriz - 12/01/2024 11:13 AM EST DME RX for nebulizer generated and placed on providers desk for signature. * Telephone Encounter - Francie Rogel RN - 11/20/2024 3:42 PM EST TC placed to [facility] [phone] to inform of below message. [facility] did not answer, RN left requesting CB to red team nurses. [facility] to f/u PRN. * Telephone Encounter - Shell Spann MD - 11/07/2024 8:05 PM EST Spoke with Martha at [facility] lab, BMP from today with K 6.5; Cr 1.8; Na 133. Unable to reach patient, LVM at both numbers listed in his profile. His sister Codi answered her phone, she lives is a separate location from him and will try to call patient this evening as well. Recommendation is to return to [facility] for potassium lowering. Dr Spann ([phone] pm) I ended up speaking to the patient at 7pm, at which point he said he would get his brother or his sister to take him to [facility] ER. He denies chest pain, palpitation, muscle ache. He needs to have insulin/Albuterol/EKG. He and his sister said they would inform me when they are leaving for [facility] ER, so that I can call an expect. Dr Spann 715pm * Telephone Encounter - Rebecca Sultana RN - 11/01/2024 1:35 PM EST Tc to [facility] to do medication reconciliation and request for refill for Theophylline. Pt was admitted to [facility] from 08/21-08/29 and [facility]. [facility] reports pt is using [facility] which is listed as their primary pharmacy on file and reports pt was discharged with a sliding scale which pt has not been doing because they tend to be forgetful sliding scaled can be reviewed under discharge paperwork scanned under media from [facility].Pt has restarted their Trulicity since being home and reports BS have been good. Pt was also discharged with nebulizer meds but no equipment. [facility] request our office to fax over a script to their DME department (fax number: [phone]) for pt to get a nebulizer. Pt has hx of COPD but was not usinga nebulizer prior to being admitted. Informed them will send request to PCP for review but pt will need to be evaluated for need for nebulizer in an ov to provide supplement documentation to [facility] for DME request. [facility] verbalized understanding and denies any further questions or concerns at this time. Pt has HDF scheduled on 11/06/24 with Shell Spann MD. * Telephone Encounter - Derrick Gomez - 10/31/2024 2:24 PM EST TC from [facility] with [facility] wanting to speak with a nurse for med reconciliation. documented in this encounter Plan of Treatment Upcoming Encounters Date Type Department Care Team (Late st Contact Info) Description 12/29/2024 11:30 AM EDT Office Visit [facility] MEDICINE 230 [facility] [place] [address] Name, [place] [address] documented as of this encounter Goals Goal [...] documented as of this encounter Care Teams Dance Director Relationship Specialty Start Date End Date Sad[place] [address] PCP - General Family Medicine 10/11/18 Dede Calles PharmD [address] [place] [address] Pharmacist Internal Medicine 05/12/23 Lars PHOENIX 07/25/24 documented as of this encounter
--- OUTSIDE RECORDS SUMMARY | 2024-12-19 17:18 | XMS_ITS | Encounter Summary ---
Author Organization [employer] Address 75 [facility] 7t [place] [address] Care Team Providers Care Study Lead Name Role Phone Sadia Leon DO Primary Care Provider [phone]- [phone] Dede Calles PharmD Unavailable [phone] Encounter Details Date Type Department Care Team ([facility] st Contact Info) Description 11/24/2024 Telephone [facility] MEDICINE [address] [place], [place] [phone] Sadia Leon DO [address] [place] [address] Social History Tobacco Use Types Packs/Day Years [...] is your housing situation today? I have yolsi landa 03/14/[address] you [...] Description 12/29/2024 11:30 AM EDT Office Visit [facility] MEDICINE [address] [place] [address] Name, MD Keaton [address] [place] [address] [phone] documented as of this encounter Goals Goal [...] documented as of this encounter Care Teams Study Lead Relationship Specialty Start Date End Date aSdia Leon DO [address] [place] [address] PCP - General Family Medicine 10/11/18 Dede Calles PharmD [address] [place] [phone] Pharmacist Internal Medicine 05/12/23 Miriam PHOENIX 07/25/24 documented as of this encounter
--- OUTSIDE RECORDS SUMMARY | 2024-12-19 17:18 | XMS_ITS | Encounter Summary ---
Author Organization [employer] Address 75 [facility] 7t [place] [address] Care Team Providers Care Crate Liner Name Role Phone AmairaniSadia strong Primary Care Provider + [phone] Dede Calles PharmD Unavailable [phone] Reason for Visit * Reason Onset Date Comments No BIOINFORMATICS RESEARCH TECHNICIAN required 11/10/2024 Encounter Details Date Type Department Care Team (Late st Contact Info) Description 11/10/2024 Telephone [facility] MEDICINE [address] [place] [address] Vicki Mcdonald, PURA No BIOINFORMATICS RESEARCH TECHNICIAN required Social History Tobacco Use Types Packs/Day Years [...] encounter Miscellaneous Notes * Telephone Encounter - Sadia Leon DO - 11/19/2024 10:59 PM EST RN note reviewed. D/w RN at time of call. Pt recently dx'd with NSCL cancer during [facility] hospitalization. No need for further BIOINFORMATICS RESEARCH TECHNICIAN monitoring at this time. * Telephone Encounter - Vicki Mcdonald RN - 11/10/2024 9:56 AM EST Pt with new Dx non small cell Lung CA. Per PCP, BIOINFORMATICS RESEARCH TECHNICIAN f/u not required at this time. documented in this encounter Plan of Treatment Upcoming Encounters Date Type Department Care Team (Late st Contact Info) Description 12/29/2024 11:30 AM EDT Office Visit [facility] MEDICINE [address] [place] [address] Name, MD Keaton [address] [place] [address] documented as of this encounter Goals Goal [...] documented as of this encounter Care Teams Crate Liner Relationship Specialty Start Date End Date Sadia Leon DO [address] [place], [place] [phone] PCP - General Family Medicine 10/11/18 Dede Calles PharmD [address] [place] [address] Pharmacist Internal Medicine 05/12/23 Miriam PHOENIX 07/25/24 documented as of this encounter
--- OUTSIDE RECORDS SUMMARY | 2024-12-19 17:18 | XMS_ITS | Encounter Summary ---
Author Organization [employer] Address 75 [facility] 7t [place] [address] Care Team Providers Care Top Stop Attacher Name Role Phone Sadia Leon DO Primary Care Provider [phone] Dede Calles PharmD Unavailable [phone] Reason for Visit * Reason Onset Date Comments Hospital Follow-up 10/17/2024 Encounter Details Date Type Department Care Team ([facility] st Contact Info) Description 10/17/2024 Telephone [facility] MEDICINE [address] [place], [place] [phone] Sadia Leon DO [address] [place], [place] [phone] Hospital Follow-up Social History Tobacco Use Types [...] encounter Miscellaneous Notes * Telephone Encounter - Jessenia Suárez - 10/17/2024 1:18 PM EST Tc from pt requesting a HDF appt. Hospital: [facility] Date of admission: 08/29/24 Discharge date: 10/23/24 Diagnosed: Care *Send message to [place] [facility] [phone] documented in this encounter Plan of Treatment Upcoming Encounters Date Type Department Care Team ([facility] st Contact Info) Description 12/29/2024 11:30 AM EDT Office Visit [facility] MEDICINE [address] [place] [address] Name, MD Keaton [address] [place] [address] documented as of this encounter Goals Goal Patient Goal Type Associated Problems Recent Progress Patient-Stated? Author Hemoglobin A1c < 7.5 Result Component 8.9( 1:28 PM EDT) No Alan Maki, PharmD Record your blood sugar as directed Result Component No Dede Calles PharmValentin Note: Use CGM, ensuring sensor is scanned at least once every 8 hours to capture 24H data. Check BG manually, as directed. documented as of this encounter Visit Diagnoses Not on filedocumented in this encounter Additional Health Concerns Assessment Noted Time PHQ-9 Depression Total Score: 2 03/14/20 24 9:16 AM EDT documented as of this encounter Care Teams Top Stop Attacher Relationship Specialty Start Date End Date Sadia Leon DO [address] [place] [address] PCP - General Family Medicine 10/11/18 Dede Calles PharmD [address] [place] [address] Pharmacist Internal Medicine 05/12/23 Miriam PHOENIX 07/25/24 documented as of this encounter
--- OUTSIDE RECORDS SUMMARY | 2024-12-19 17:18 | XMS_ITS | Encounter Summary ---
Author Organization [employer] Address 75 [facility] 7t [place] [address] Care Team Providers Care Director Of Residential Services Name Role Phone Sadia Leon DO Primary Care Provider [phone]- [phone] Dede Calles PharmD Unavailable [phone] Reason for Visit * Reason Onset Date Comments FYI 11/21/2024 Encounter Details Date Type Department Care Team ([facility] st Contact Info) Description 11/21/[address] [facility] MEDICINE [address] [place], [place] [phone] Sadia Leon DO [address] [place] [address] FYI Social History Tobacco Use Types Packs/Day [...] encounter Miscellaneous Notes * Telephone Encounter - Francie Rogel RN - 11/22/2024 9:06 AM EST Noted. PCP aware. * Telephone Encounter - Choco Greenfield - 11/21/2024 3:14 PM EST Tc from Nurse Kimball stating that pt was having trouble knowing his medication. Pt has insulin but doesn't remember if he is taking it or isn't taking it. Nurse kimball has been trying to get in touchwith sister and left two messages but still no answer. Pt is currently having memory problems. Nurse kimball called social service for an evaluation of pt. Nurse Kimball: [phone] (Miriam PHOENIX) documented in this encounter Plan of Treatment Upcoming Encounters Date Type Department Care Team (Late st Contact Info) Description 12/29/2024 11:30 AM EDT Office Visit [facility] MEDICINE [address] [place] [address] Name, MD Keaton [address] [place] [address] documented as of this encounter Goals Goal [...] documented as of this encounter Care Teams Director Of Residential Services Relationship Specialty Start Date End Date Sadia Leon DO [address] [place] [address] PCP - General Family Medicine 10/11/18 Dede Calles PharmD [address] [place] [address] Pharmacist Internal Medicine 05/12/23 Miriam PHOENIX 07/25/24 documented as of this encounter
--- OUTSIDE RECORDS SUMMARY | 2024-12-19 17:18 | XMS_ITS | Encounter Summary ---
Author Organization [employer] Address 75 [facility] 7t [place] [address] Care Team Providers Care Truck Jumper Name Role Phone Sadia Leon DO Primary Care Provider [phone]- [phone] Dede Calles PharmD Unavailable [phone] Reason for Visit * Reason Comments Med Refill Encounter Details Date Type Department Care Team ([facility] st Contact Info) Description 10/31/2024 Refill [facility] MEDICINE [address] [place], [place] [phone] Sadia Leon DO [address] [place] [address] Chronic pain syndrome Social History Tobacco Use Types Packs/Day Years [...] Description 12/29/2024 11:30 AM EDT Office Visit [facility] MEDICINE [address] [place] [address] Name, MD Keaton [address] [place] [address] documented as of this encounter Goals Goal [...] of this encounter Visit Diagnoses Diagnosis Chronic pain syndrome documented in this encounter Additional Health Concerns Assessment Noted Time PHQ-9 Depression Total Score: 2 03/14/20 24 9:16 AM EDT documented as of this encounter Care Teams Truck Jumper Relationship Specialty Start Date End Date Sadia Leon DO [address] [place] [address] PCP - General Family Medicine 10/11/18 Dede Calles PharmD [address] [place] [address] Pharmacist Internal Medicine 05/12/23 Miriam PHOENIX 07/25/24 documented as of this encounter
--- OUTSIDE RECORDS SUMMARY | 2024-12-19 17:18 | XMS_ITS | Encounter Summary ---
Author Organization [employer] Address 75 [facility] 7t [place] [address] Care Team Providers Care Rejector Name Role Phone Sadia Leon DO Primary Care Provider [phone]- [phone] Dede Calles PharmD Unavailable [phone] Reason for Visit * Reason Onset Date Comments FYI 11/23/2024 Encounter Details Date Type Department Care Team ([facility] st Contact Info) Description 11/23/2024 Telephone [facility] MEDICINE [address] [place], [place] [phone] Sadia Leon DO [address] [place] [address] FYI Social History Tobacco Use Types Packs/Day [...] Telephone Encounter - Francie Rogel RN - 11/23/2024 3:15 PM EST Noted. * Telephone Encounter - Jessenia Suárez - 11/23/2024 3:04 PM EST Tc from Vicki PHOENIX to report that pt will be in physical therapy and occupational therapy. Any questions contact: [phone] documented in this encounter Plan of Treatment Upcoming Encounters Date Type Department Care Team (Late st Contact Info) Description 12/29/2024 11:30 AM EDT Office Visit [facility] MEDICINE [address] [place] [address] Name, MD Keaton [address] [place] [address] documented as of this encounter Goals Goal Patient Goal Type Associated Problems Recent Progress Patient-Stated? Author Hemoglobin A1c < 7.5 Result Component 8.9( 4 1:28 PM EDT) No Dellogono, Alan, PharmD Record your blood sugar as [...] documented as of this encounter Care Teams Rejector Relationship Specialty Start Date End Date Sadia Leon DO [address] [place] [address] PCP - General Family Medicine 10/11/18 Dede Calles PharmD [address] [place] [address] Pharmacist Internal Medicine 05/12/23 Miriam PHOENIX 07/25/24 documented as of this encounter
== END 2024-12-19 14:07 | disposition home or self-care (01) ==
LOC: HO.HHCX 14:06
PROVIDERS: Visit Provider Internal Medicine Geriatric Medicine
DX: J44.9 Chronic obstructive pulmonary disease, unspecified (principal); C34.91 Malignant neoplasm of unspecified part of right bronchus or lung
CPT/HCPCS: 71046

== ENCOUNTER → 2024-12-19 14:06 | Outpatient (BNV) | payer OTHER, SELFPAY | PROVIDERS: Visit Provider Radiology Diagnostic Radiology | DX: J44.9 Chronic obstructive pulmonary disease, unspecified (principal) | CPT/HCPCS: 71046 ==